=== PATIENT | female | born 1965 | race African-American/Black ===

== ENCOUNTER 2023-08-21 17:02 | Inpatient (IN) | payer OTHER, SELFPAY ==
[2023-08-21 14:33] VITALS: BP 156/94
[2023-08-21 15:24] VITALS: BMI 41.5
--- NOTE | 2023-08-21 15:26 | ED.GENMED ---
History of Present Illness
General
Chief Complaint: Skin Problem
Source: patient and physician
Time Seen by Provider: 08/21/23 15:06
Travel History
Have you had any contact with someone who has COVID-19?: No
Do you have any symptoms of coronavirus? Fever > 100 degrees, chills, cough, shortness of breath, sore throat, loss of taste or smell, muscle aches, or headache?: No
History of Present Illness
History of Present Illness:
57 year old female with PMH of breast cancer s/p double mastectomy presenting to the ED at the request of her oncology team for evaluation and ultimately admission of a suspected left breast cellulitis/abscess that began approximately 1.5 weeks ago
with worsening pain, erythema and what patient believes to be 'fluid underneath the skin' but without any purulent drainage. Patient dennies any fevers, chills, rigors. She has been on chronic PO amoxicillin and has needed IV abx in the past for
which she has been treated at [facility]. Patient has no other concerns at this time including nausea/vomiting, abdominal pain, chest pain, SOB.
Past History
Past History
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
ED Past Surgical History: Gynecological and Other (Bilateral mastectomy with tissue line up worker placement)
Patient has exhibited threatening behavior?: No
Social History
Tobacco: Former smoker
Alcohol: None
Drug: None
Personal:
Living: with family
Review of Systems
Review of Systems
All Other Systems: ROS reviewed and negative except as documented in HPI and ROS
Phy Exam
Physical Exam
Physical Exam:
GENERAL: Alert , in no apparent distress
HEAD: NCAT
EYE: clear conjunctiva
NECK: Supple
ENT: o/p clr, mmm.
CARDIAC: Regular rate and rhythm .
LUNGS: Clear breath sounds bilaterally, no acute respiratory distress, no wheezes/rales/rhonchi
NEUROLOGICAL: Alert and oriented
SKIN: Warm and dry, skin intact. Right breast: Well healed incision without dehiscense. There is surrounding erythema/edema/warmth and pain with palpation to the entire right chest wall extending in towards the axillary region. ? fluctuance at the
medial most aspect of the right chest wall.
MUSCULOSKELETAL: No edema, well perfused.
PSYCH: Normal and appropriate interaction.
Scores
Heart Failure Risk
Heart Failure Risk Score: Not Applicable
Heart Score for Chest Pain Patients
STEMI patient?: Not applicable
Withdrawal Assessment of Alcohol
Withdrawal Assessment Completed?: Not applicable
Course
Orders/Labs/Results
Orders:
Orders
08/21/23 Breakfast
Regular
At Your Request: Full Participation
08/21/23 15:24
Piperacillin/Tazo 3.375 Gram [Zosyn] 3.375 gram in 50 ml IV NOW
08/21/23 15:32
Alteplase [Cathflo/Activase] 2 mg IV NOW STA
08/21/23 16:02
Admit/Transfer Patient As Directed
Co-Sign Provider:
Level of Care: Inpatient admission
Assign to:: Medical/Surgical
Physician / Group: rafi coelho
Diagnosis: right breast infection
Reason for Hospitalization: right breast infection
Expected length of stay greater than two midnights?: Yes
ELOS- Estimated Length of Stay in days: 3
I certify the patient meets the requirements for IP care: Yes
08/21/23 16:03
Code Status As Directed
Resuscitation Status: Full Code
08/21/23 16:08
INFECTIOUS DISEASE CONSULT Routine
Consulting Provider: Sandra Sanchez
Was physician already notified: Yes
PLASTIC SURGERY CONSULT Routine
Consulting Provider: Emanuel Whiting
Was physician already notified: Yes
08/21/23 16:16
Lactic Acid Q4H
Comment: CANCEL 2nd LACTIC ACID IF 1st LACTIC ACID IS LESS THAN 2
08/21/23 16:17
CRP [C-Reactive Protein] Urgent
Complete Blood Count/With Diff Urgent
Comprehensive Metabolic Panel Urgent
ESR [Erythrocyte Sed Rate] Urgent
Blood Culture Q30M
JOSE Source: Blood/Venous
Specimen Description:
Blood Culture Q30M
JOSE Source: Blood/Venous
Specimen Description:
08/21/23 16:55
Vancomycin [Vancocin] 2,000 mg 0.9% Sodium Chloride 500 ml [Nss] 500 ml IV NOW
08/21/23 18:23
0.9% Sodium Chloride 1000 ml [Nss] 1,000 ml IV 80 mls/hr
Acetaminophen [Tylenol] 1,000 mg PO Q6HPRN PRN
HYDROmorphone [Dilaudid] 0.5 mg IV Q4HPRN PRN
Loperamide [Imodium] 2 mg PO Q4HPRN PRN
Ondansetron HCl [Zofran] 4 mg PO TIDPRN PRN
Oxycodone/Acetaminophen [Percocet 5/325] 1 tablet PO Q6HPRN PRN
08/21/23 18:23
Activity As Directed
Activity Level: As Tolerated
Intake/ Output As Directed
Frequency: Per unit guidelines
Pneumatic Compression Sleeves As Directed
Type: Knee high
Vital Signs As Directed
Frequency: Per unit guidelines
Weight As Directed
Frequency: Daily
Pulse Ox/spot Check [RESP] Routine
Quantity: 1
DX Deep Vein Thrombosis Video Routine
08/21/23 20:00
abemaciclib [Verzenio] 150 mg PO BID
08/21/23 22:00
Piperacillin/Tazo 3.375 Gram [Zosyn] 3.375 gram in 50 ml IV Q6H
08/22/23 Breakfast
NPO
Allow oral meds: Yes
Allow clear liquids: No
Complete Blood Count/With Diff IN AM
Comprehensive Metabolic Panel IN AM
PTT IN AM
Prothrombin Time IN AM
08/22/23 08:00
Cyanocobalamin [Vitamin B-12] 1,000 mcg PO DAILY
Abnormal Lab Results
08/21/23
16:17
RBC 3.33 L 10^6/uL
(4.20-5.40)
Hgb 10.4 L g/dL
(12.0-16.0)
Hct 30.5 L %
(37.0-47.0)
MCH 31.2 H pg
(27.0-31.0)
Abs Immat Gran (auto) 0.1 H 10^3/uL
(0-0.05)
Absolute Neuts (auto) 7.1 H 10^3/uL
(1.4-6.5)
Absolute Lymphs (auto) 0.9 L 10^3/uL
(1.2-3.4)
Immature Gran % 1.4 H %
(0-0.5)
Neutrophils % 81.1 H %
(42.2-75.2)
Lymphocytes % 9.8 L %
(20.5-51.1)
ESR > 145 H mm/hour
(0-20)
Potassium 3.2 L mmol/L
(3.5-5.1)
Chloride 95 L mmol/L
(98-107)
Glucose 116 H mg/dl
(70-99)
Alkaline Phosphatase 143 H U/L
(38-126)
C-Reactive Protein 232.90 H mg/L
(0.0-10.00)
Albumin 3.3 L g/dl
(3.5-5.0)
08/21/23 16:17
08/21/23 16:17
Vital Signs
Initial and Last Documented VS:
Initial Vital Signs
Temp Pulse Resp BP Pulse Ox
98.1 F 92 19 156/94 98
08/21/23 14:33 08/21/23 14:33 08/21/23 14:33 08/21/23 14:33 08/21/23 14:33
Last Documented Vital Signs
Temp Pulse Resp BP Pulse Ox
98.9 F 99 17 133/90 100
08/21/23 18:30 08/21/23 18:30 08/21/23 18:30 08/21/23 18:30 08/21/23 18:30
MDM/Problems Addressed
Differential Diagnosis Includes:
right breast cellulitis, abscess, necrotizing fasciitis, hardware infection
MDM/Problems Addressed:
57 y/o female sent to ED by oncology team with concern for right breast cellulitis, failed outpatient abx, scheduled for surgery tomorrow but oncology team would like patient to be started on IV abx with ID consult. Will notify patients surgical
team, on-call oncology team, on-call ID team and hospitalist. Patient declining anything for pain at this time. IV abx ordered. Cultures to be obtained.
Chronic conditions affecting care: Cancer
Acute Exacerbation and/or Progression of Chronic Illness: Cancer
*Pulse Oximetry
Patient hypoxic: no
*Critical Care Note
Total Time (30-74mins, 75-104mins- exclusive of procedures): Not Applicable
Data Reviewed
Review of Other/Old Records Reveals: Records and Discharge Summary
Source: patient, records and physician
Patient Management
Discussion with other providers: Hospitalist and Safety Fire Boss
Escalation/DeEscalation of care consider admission/obs:
I informed hospitalist, surgery team, infectious disease and oncology about patient's admission. Hospitalist is aware and accepts for continued evaluation and treatment.
ED Attending Note
-
Portions of this chart may have been created with voice recognition software.� Occasional wrong word or��sound alike� substitutions may have occurred due to the inherent limitations of voice recognition software.
Discharge Plan
Departure
Patient Disposition: Admit
Date of Disposition: 08/21/23
Time of Disposition: 15:26
Presentation/result/management discussed w/ accepting MD/DO: Hospitalist
Discharge Problem:
Cellulitis of right breast, Breast cancer
Interventions
Interventions:
*Risk Screen - Suicide Last Done: 08/21/23 15:32
*General Assessment Last Done: 08/21/23 14:33
*Neglect/Abuse Screening Last Done: 08/21/23 15:32
ED- Fall Risk Assessment Last Done: 08/21/23 15:30
*ED COVID-19 Vaccine History Last Done: 08/21/23 15:08
*Nursing Disposition Last Done: 08/21/23 18:10
ED-Skin Assessment Last Done: 08/21/23 15:30
Discharge Date and Time
Discharge Date/Time: 08/21/23 18:11
--- NOTE | 2023-08-21 15:33 | VATNOTE ---
pt arrived to room 16 in ER from [facility]; informed that one dose of cathflo had previously been administered in [facility]; still no blood return currently. PA in to see pt.; he will order 2nd dose of cathflo. Awaiting med arrival.
[2023-08-21] MEDS: ZOSYN 50 IV ×2 (15:43→22:08)
[2023-08-21 15:54] VITALS: BP 93/65
[2023-08-21] MEDS: CATHFLO/ACTIVASE 2 MG IV (15:55)
[2023-08-21 16:00] VITALS: BP 113/96
--- NOTE | 2023-08-21 16:03 | VATNOTE ---
cath linda given now; 2nd dose; informed 1st dose given in [facility] with no blood return. Checked prior to administration of cathflo and still no blood return. Cathflo to dwell now beginning @ 1600. Will recheck in approx. 1 hr.
--- NOTE | 2023-08-21 16:09 | HPS.HSE ---
Family Physician
-
Family Physician: NOT KNOW UNKNOWN - PT DOES
Chief Complaint
-
Right breast pain
History of Present Illness
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 Patient
has developed this for about 2 weeks and been having worsening pain along with erythema. Today patient went to her oncologist office who sent her to the ED. She has scheduled surgery with plastics tomorrow. Currently she denies any fever/chills.
Denies any nausea, vomiting, diarrhea, constipation. Denies any abdominal pain. Denies any chest pain, shortness of breath.
Medical History
Past Medical History
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
Past Surgical History: Reports Other (Bilateral mastectomy with tissue community worker placement)
Social History
Tobacco: Former Smoker
Alcohol: None
Drug: None
Family History
Family History: Not pertinent
Allergies / Home Medications
Allergies reflects when Allergies were last updated in [employer].
Home Medications with original date entered in [employer]
Allergy/Medication List:
Allergies
Allergy/AdvReac Type Severity Reaction Status Date / Time
codeine AdvReac Nausea / Verified 08/21/23 12:29
Vomiting
Home Medications
abemaciclib 150 mg tablet (Verzenio) 150 mg PO BID 08/29/19
ondansetron HCl 4 mg tablet 4 mg PO TIDPRN PRN nausea 08/29/19
loperamide 2 mg capsule 2 mg PO Q4HPRN PRN diarrhea 09/12/19
cyanocobalamin (vitamin B-12) 100 mcg tablet 1,000 mcg PO DAILY 12/17/20
amoxicillin 875 mg-potassium clavulanate 125 mg tablet 1 tab PO BID 03/09/23
acetaminophen 500 mg tablet 1,000 mg PO Q6H PRN mild pain 08/21/23
oxycodone-acetaminophen 5 mg-325 mg tablet 1 tab PO Q6HPRN PRN moderate pain 08/21/23
Review of Systems
-
History Source: Patient
A 12 point ROS was completed and negative except as noted: Yes
Physical Exam
Vital Signs
Vital Signs
Temp Pulse Resp BP Pulse Ox
98.1 F 92 19 113/96 99
08/21/23 14:33 08/21/23 14:33 08/21/23 14:33 08/21/23 16:00 08/21/23 16:00
Physical Exam
General: Well Nourished and No Apparent Distress
HEENT: Anicteric and Moist mucous membranes
Respiratory: Clear and Non Labored Respirations; No Wheezes
Cardiac: S1/S2 and Regular Rhythm
Breast: Deferred by me
GI: Soft, Non Tender, Non Distended and Normal Bowel Sounds
Rectal: Deferred by Provider
Genito-urinary: No Honeycutt
Musculoskeletal: No Edema
Skin: Other (Right breast tenderness, mild discharge from left)
Neuro: Awake, Alert, Oriented and AO x 3
Psych: Calm
Impression/Plan
-
Suspect right breast community worker infection
has hx of left community worker infection in the past
ID to evaluate
Start empiric antibiotics; on chronic augmentin. Follows up with Dr. Sanchez outpatient
N.p.o. past midnight for or tomorrow by plastic surgery
Pain control
No leukocytosis per morning labs, repeat labs pending
Lactate pending
History of breast cancer status post double mastectomy, left sided radiation and chemo
Continue with Verzenio
Follows up with Dr. Potter outpatient
pain control
Left arm lymphedema
Monitor
Morbid obesity secondary to excess calories
Monitor
DVTppx
SCD's for now; post OP can start pharm ppx if ok with surgeon
Full code
[2023-08-21 16:27] LABS: % Basophils 0.3 % (0-2); % Eosinophils 1.2 % (0-6); % Immature Granulocytes 1.4 % (0-0.5); % Lymphocytes 9.8 % (20.5-51.1); % Monocytes 6.2 % (1.7-9.3); % Neutrophils 81.1 % (42.2-75.2); Absolute Eosinophils 0.1 10^3/uL (0-0.7); Absolute Immature Granulocytes 0.1 10^3/uL (0-0.05); Absolute Lymphocytes 0.9 10^3/uL (1.2-3.4); Absolute Monocytes 0.5 10^3/uL (0.1-0.6); Absolute Neutrophils 7.1 10^3/uL (1.4-6.5); Hematocrit 30.5 % (37.0-47.0); Hemoglobin 10.4 g/dL (12.0-16.0); Mean Corp Hgb Conc. 34.1 g/dL (33.0-37.0); Mean Corpuscular Hgb 31.2 pg (27.0-31.0); Mean Corpuscular Volume 91.6 fL (81.0-99.0); Nucleated Red Blood Cells % 0 %; Platelet Count 273 10^3/uL (130-400); Red Blood Cell Count 3.33 10^6/uL (4.20-5.40); Red Cell Dist. Width 13.2 % (11.5-14.5); White Blood Cell Count 8.7 10^3/uL (4.8-10.8)
[2023-08-21 16:41] LABS: Lactic Acid 0.9 mmol/L (0.7-2.0)
[2023-08-21 16:51] LABS: Erythrocyte Sed Rate > 145 mm/hour (0-20)
[2023-08-21 16:52] LABS: ALT (SGPT) 21 U/L (0-35); AST (SGOT) 29 U/L (14-36); Albumin 3.3 g/dl (3.5-5.0); Alkaline Phosphatase 143 U/L (38-126); Blood Urea Nitrogen 9 mg/dl (7-17); Calcium 8.8 mg/dl (8.4-10.2); Carbon Dioxide 29 mmol/L (22-30); Chloride 95 mmol/L (98-107); Estimated Creatinine Clearance > 125 ml/min; Glucose 116 mg/dl (70-99); Potassium 3.2 mmol/L (3.5-5.1); Sodium 135 mmol/L (135-145); Total Bilirubin 0.9 mg/dl (0.2-1.3); Total Protein 6.4 g/dl (6.3-8.2); eGFR > 60.00
[2023-08-21] MEDS: VANCOCIN 540 MG IV (17:12)
--- NOTE | 2023-08-21 17:24 | VATNOTE ---
checked port @ 1700 for blood return while cathflo dwelled; no blood return; will recheck approx. 1800
[2023-08-21 18:22] VITALS: BMI 41.2
--- NOTE | 2023-08-21 18:29 | VATNOTE ---
only able to retreive 1ml of blood from port after 2 hr dwell of cathflo. Recommended to pt. & PCN dye study and possible more cathflo ordered for tomorrow. will heparinize now overnight.
[2023-08-21 18:30] VITALS: BP 133/90
--- NOTE | 2023-08-21 19:14 | PTCARENOTE ---
Received patient from ER via stretcher around 1819 in stable condition. Patient oriented to unit. Call harley in reach.
--- NOTE | 2023-08-21 19:32 | PHA.VAN.IN ---
Assessment
- Assessment
Renal Function: Other (SCR = 0.7)
Concomitant Antimicrobials: ZOSYN, CHRONIC AUGMENTIN
- Previous Dosing Experience
Previous Regimen: 1500MG IV Q12H X 3 DOSES
Date of Regimen: 08/04/17
Provided Trough of: 11
Provided AUC of: UNKNOWN
Patient's SCR is: Decreased compared to previous dosing experience (08/04/17 SCR = 0.9)
Patient's weight is: Decreased compared to previous dosing experience (08/04/17 WT = 136.9 KG)
AUC Dosing Plan
- Dosing Variables
Dosing Weight (kg): 134
Dosing CrCl (ml/min): 100
Vd coefficient (L/kg): 0.5
- Empiric Dosing
Initial / Loading Dose: 2GM
Maintenance Regimen: 1500MG IV Q12H
Estimated AUC (mcg*h/mL): 546
Estimated Peak (mcg*h/mL): 34.5
Estimated Trough (mcg/ml): 13.8
Estimated Half Life (H): 7.9
Pharmacokinetics Vancomycin I
- -
Patient Age: 57
Patient Sex: Female
Vancomycin Day #: 1
Indication: Skin And Soft Tissue ([L] BREAST INFECTION)
Requesting Provider: STEPH
Height / Weight:
Height 5 ft 11 in
Actual Weight 134.037 kg
Pertinent Past Medical History: BREAST CA, DOUBLE MASTECTOMY, [L] BREAST RECONSTRUCTION FAILURE,
- Vital Signs / Lab Results
Temp Pulse Resp BP Pulse Ox
98.9 F 99 17 133/90 100
08/21/23 18:30 08/21/23 18:30 08/21/23 18:30 08/21/23 18:30 08/21/23 18:30
Lab Results - Hematology
08/21/23
16:17
WBC 8.7
Lab Results - Chemistry
08/21/23
16:17
BUN 9
Creatinine 0.7
Estimated Creat Clear > 125
Albumin 3.3 L
08/21/23 08/21/23
16:16 19:15
Lactic Acid 0.9 Cancelled
[2023-08-21] MEDS: PERCOCET 5/325 1 TABLET PO (20:07)
[2023-08-21] MEDS: NSS 1000 IV (20:07)
[2023-08-21] MEDS: KCL 40 MEQ PO (23:01)
[2023-08-22] VITALS (13 sets, daily range): BP systolic 50–131; BP diastolic 58–86; BMI 40.9
[2023-08-22] MEDS: PERCOCET 5/325 1 TABLET PO ×2 (03:24→17:54)
[2023-08-22] MEDS: ZOSYN 50 IV ×4 (03:24→23:28)
[2023-08-22] MEDS: VANCOCIN 300 ML IV ×2 (05:07→17:49)
[2023-08-22] MEDS: VANCOCIN 300 MG IV ×2 (05:07→17:49)
[2023-08-22 06:33] LABS: % Basophils 0.2 % (0-2); % Immature Granulocytes 1.2 % (0-0.5); % Monocytes 6.9 % (1.7-9.3); % Neutrophils 79.7 % (42.2-75.2); Absolute Eosinophils 0.2 10^3/uL (0-0.7); Absolute Immature Granulocytes 0.1 10^3/uL (0-0.05); Absolute Lymphocytes 0.8 10^3/uL (1.2-3.4); Absolute Monocytes 0.6 10^3/uL (0.1-0.6); Absolute Neutrophils 6.4 10^3/uL (1.4-6.5); Hematocrit 26.9 % (37.0-47.0); Hemoglobin 9.1 g/dL (12.0-16.0); Mean Corp Hgb Conc. 33.8 g/dL (33.0-37.0); Mean Corpuscular Volume 91.5 fL (81.0-99.0); Mean Platelet Volume 9.2 fL (7.4-10.4); Nucleated Red Blood Cells % 0 %; Platelet Count 245 10^3/uL (130-400); Red Blood Cell Count 2.94 10^6/uL (4.20-5.40); Red Cell Dist. Width 13.3 % (11.5-14.5); White Blood Cell Count 8.1 10^3/uL (4.8-10.8)
[2023-08-22 06:41] LABS: INR 1.28; PT 15.8 Sec (11.4-14.6)
[2023-08-22 06:42] LABS: APTT 39.6 Sec (23.4-35.0)
[2023-08-22 06:54] LABS: ALT (SGPT) 18 U/L (0-35); AST (SGOT) 26 U/L (14-36); Albumin 2.8 g/dl (3.5-5.0); Alkaline Phosphatase 124 U/L (38-126); Blood Urea Nitrogen 14 mg/dl (7-17); Calcium 8.3 mg/dl (8.4-10.2); Carbon Dioxide 26 mmol/L (22-30); Chloride 101 mmol/L (98-107); Estimated Creatinine Clearance 104 ml/min; Glucose 126 mg/dl (70-99); Sodium 136 mmol/L (135-145); Total Bilirubin 0.7 mg/dl (0.2-1.3); Total Protein 5.6 g/dl (6.3-8.2); eGFR > 60.00
[2023-08-22 07:01] LABS: Potassium 3.5 mmol/L (3.5-5.1)
--- NOTE | 2023-08-22 07:30 | PTCARENOTE ---
Pt transferred to preop area via bed. Pt instructed on what to expect pre and post operatively. Pt verbalized understanding of instructions.
--- NOTE | 2023-08-22 08:12 | PHA.VAN.FU ---
Vancomycin Assessment / Plan
- Assessment
Renal Function: Stable
WBC's are: WNL
In the past 24 hrs, patient has been: Afebrile
Concomitant Antimicrobials: piperacillin/tazobactam
- Dosing Plan
Continue: Vanc 1500mg Q12H
- Monitoring Plan
No level(s) ordered at this time: consider levels in next few days
- Follow Up
Pharmacy will continue to follow.
Vancomycin Follow UP
- -
Patient Age: 57
Patient Sex: Female
Vancomycin Day #: 2
Indication: Skin And Soft Tissue
Requesting Provider: Dr. Berry
Pertinent Antimicrobial Allergies:
no pertinent antibiotic allergies
Height / Weight:
Height 5 ft 11 in
Actual Weight 133.044 kg
Pertinent Past Medical History: BMI ~41, breast cancer s/p double mastectomy
- Vital Signs / Lab Results
Temp Pulse Resp BP Pulse Ox
98.4 F 76 20 105/60 100
08/22/23 04:08 08/22/23 04:08 08/22/23 04:08 08/22/23 04:08 08/22/23 04:08
Lab Results - Hematology
08/21/23 08/22/23
16:17 06:02
WBC 8.7 8.1
Lab Results - Chemistry
08/21/23 08/22/23
16:17 06:02
BUN 9 14
Creatinine 0.7 0.9
Estimated Creat Clear > 125 104
Albumin 3.3 L 2.8 L
08/21/23 08/21/23
16:16 19:15
Lactic Acid 0.9 Cancelled
[2023-08-22] MEDS: ZOFRAN 4 MG IV (09:12)
--- NOTE | 2023-08-22 09:19 | W.IMMPOSTOP ---
Surgical Immed Post Op Note
-
Primary Surgeon: BETHANIE Whiting
Assisting Surgeon:
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
Post-op Diagnosis: Same
Procedure Performed: Removal of right infected tissue timber spotter, right capsulectomy
Anesthesia Type: General
Specimen / Cultures: Aerobic and anaerobic cultures, capsule for permanent
Estimated Blood Loss: 50 cc
Complications: None
Operative Findings: Gross purulence, periprosthetic fluid
--- NOTE | 2023-08-22 09:20 | OR.RPT ---
Operative Report
Operative Report
Surgeon: BETHANIE Whiting MD
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
Postoperative diagnosis: Same
Procedure:
1. Removal of right breast infected tissue perfect bind machine operator
2. Capsulectomy right breast
Complications: None
Anesthesia: General
EBL: 50 cc
Specimens: Right periprosthetic fluid for aerobic and anaerobic culture, right breast capsule for permanent
Indications for procedure: Patient is a 57-year-old female with metastatic breast cancer currently undergoing chemotherapy. She had a bilateral mastectomy and immediate perfect bind machine operator reconstruction. She underwent adjuvant radiation therapy on the left
breast and suffered a implant extrusion. The tissue perfect bind machine operator was subsequently removed and she was left with no reconstruction on that side. She was seen by infectious disease for small draining sinus and was maintained on p.o. antibiotics. The
right tissue perfect bind machine operator was deflated but left intact. She presented in the last 2 weeks with increased pain swelling and redness at the right breast concerning for periprosthetic infection. A plan was made for removal of the tissue perfect bind machine operator with
possible reinsertion. It was discussed that reinsertion would only take place if there is no evidence of gross purulence in the periprosthetic fluid. She was admitted to the hospital prior to her procedure for IV antibiotics. This was due to
worsening cellulitis of the right breast. As such the likelihood of placing a tissue perfect bind machine operator is very low due to the risk of infectious recurrence. Plan was made for removal of right tissue perfect bind machine operator with capsulectomy. Consents were signed
accordingly. Risk included bleeding, seroma, recurrent infection, need for repeat procedure. She understood these risk desired to proceed
Procedure in detail: Patient was identified in the preoperative area and the surgical site was confirmed to be the right breast. The area of fluctuance was marked out along the prior surgical scar. All questions were answered and consents were
confirmed. Patient was taken back to the operating room placed supine on table. Anesthesia was induced and the patient was prepped and draped in usual sterile fashion using ChloraPrep solution. Timeout for patient safety was performed was
confirmed that preoperative antibiotics been administered and bilateral SCDs were in place. Procedure began by the injection of 0.5% Marcaine into the right breast 10 cc in total. A 10 blade was then used to incise the prior scar Bovie
electrocautery was then used to dissect down into the breast capsule. A capsulotomy was performed and gross purulence was encountered. Aerobic anaerobic cultures were taken and the tissue perfect bind machine operator was removed. Tissue perfect bind machine operator was noted to be an
Allergan textured tissue perfect bind machine operator. The pocket was thoroughly irrigated and a capsulectomy was performed. The capsule was sent for permanent path. Meticulous hemostasis was ensured and the pocket was irrigated with double antibiotic solution
followed by dilute Betadine solution. A large bore Josse drain was placed in the pocket and tunneled through the skin. Wound was closed with a series of 2-0 Vicryl's followed by 2-0 nylon's. Patient tolerated procedure well and was performed
without complication. Counts were correct at the end of the case. She was extubated taken the PACU for further care
--- NOTE | 2023-08-22 10:20 | PTCARENOTE ---
Pt received from the PACU via bed. Transport was w/o incident. Pt is Awake, alert, oriented X3, HRR, lungs are clear, resp. easy. Pt's right breast area with a dry surgical dressing along with REINALDO tube. Reinaldo draining serosanquinous fluid. Pt denies
pain and denies nausea at present. Pt had recently been medicated in the PACU for nausea and pain. Pt instructed on plan of care. Pt verbalizes understanding of instrucions. Call harley is within reach.
[2023-08-22] MEDS: NSS 1000 IV (11:09)
[2023-08-22] MEDS: VITAMIN B-12 1000 MCG PO (12:31)
--- NOTE | 2023-08-22 13:45 | CM ---
Chart reviewed. Spoke with pt at bedside
h/o of breast cancer. Had infected tissue ip paralegal removed today
Pt lives in a ranch style home with her
Independent prior to hospitalization
No DME
Has had home care in past and home infusion but unable to recall agency
Denies past SNF
Will have ride at d/c
Primarily sees oncologist for ongoing care
Pharm - [facility]
CM will cont to follow for d/c needs
Plan - anticipate home no needs
--- NOTE | 2023-08-22 13:56 | W.PN.ID1 ---
Date of Service
Date of Service: August 22, 2023
Today's Communication
follow port
follow OR cultures
vanc/zosyn
Assessment / Plan
R Breast/Surgical Site Cellulitis
Possible Tissue Sample Mounter Infection
L Breast (CL side) was on presumptive rx for actinomyces
Port
- blood cultures x2 no growth to date
- OR findings c/w R sided infection
- CT chest appears to have been cancelled, not needed as patient now postoperative
- follow port - will review potential for dye study with IR
- agree with vancomycin/zosyn
- follow clinically
Chief Complaint
-: Cellulitis
Subjective / Review of Systems
afebrile
bp stable
without leukocytosis
esr/crp quite elevated
cr normal
OR findings with puss - tissue culture moderate wbc no organisms
blood cultures no growth
Vital Signs / Physical Exam
Vital Signs
Vital Signs
Temp Pulse Resp BP Pulse Ox
97.6 F 83 14 107/73 97
08/22/23 12:26 08/22/23 12:26 08/22/23 12:26 08/22/23 12:26 08/22/23 12:26
Physical Exam
Constitutional: No Acute Distress
Cardiovascular: Regular Rate and S1/S2; Negative Murmur or Rub
Pulmonary: Clear and Symmetric; Negative Wheezes or Rales
Gastrointestinal: Soft, Non Tender, Non Distended and Normal Bowel Sounds
Skin: Warm and Dry; Negative Rash or Jaundice
Objective Data
Lab Data
Lab Results
08/22/23 06:02
08/22/23 06:02
ESR > 145 mm/hour (0-20) H 08/21/23 16:17
PT 15.8 Sec (11.4-14.6) H 08/22/23 06:02
INR 1.28 08/22/23 06:02
APTT 39.6 Sec (23.4-35.0) H 08/22/23 06:02
Estimated Creat Clear 104 ml/min 08/22/23 06:02
Lactic Acid Cancelled 08/21/23 19:15
Total Bilirubin 0.7 mg/dl (0.2-1.3) 08/22/23 06:02
AST 26 U/L (14-36) 08/22/23 06:02
ALT 18 U/L (0-35) 08/22/23 06:02
Alkaline Phosphatase 124 U/L (38-126) 08/22/23 06:02
C-Reactive Protein 232.90 mg/L (0.0-10.00) H 08/21/23 16:17
Most recent labs reviewed.
Micro Results:
08/22/23 08:25 Wound Culture - Pending
Breast - Right Gram Stain - Preliminary
08/22/23 08:25 Anaerobic Culture - Pending
Breast - Right
08/21/23 16:17 Blood Culture - Pending
Blood/Venous
08/21/23 16:17 Blood Culture - Pending
Blood/Venous
Care Review
Plan reviewed with: Physician (Dr Whiting - left breast workup)
--- NOTE | 2023-08-22 14:02 | W.PN.HOSP.TC ---
Today's Communication/Plan
-
imaging will d/w with ID
IV ABX
Await OR culture
restart diet
Assessment / Plan
Assessment / Plan
#Right breast prior surgical site cellulitis with suspected hand wood sander infection
has hx of left hand wood sander infection in the past
Start empiric antibiotics; on chronic augmentin.� Follows up with Dr. Sanchez outpatient
s/p OR Removal of right infected tissue hand wood sander, right capsulectomy Gross purulence noted by Dr. Whiting
Pain control
No leukocytosis
IV abx per ID- IV vancomycin and IV zosyn
Pain control
f/u on OR aerobic and anaerobic cultures
will d/w with ID if further imaging required
History of breast cancer status post double mastectomy, left sided radiation and chemo
Continue with Verzenio
Follows up with Dr. Potter outpatient
pain control
Left arm lymphedema
Monitor
Morbid obesity secondary to excess calories
Monitor
DVTppx
SCD's for now; post OP can start pharm ppx if ok with surgeon
Full code
Anticipated Discharge: > 48 hours
Subjective/Interval History
-
Date of Service: August 22, 2023
seen post op
denies pain at surgical site
Objective Data
-
Labs:
Laboratory Results
08/22/23
06:02
WBC 8.1
Hgb 9.1 L
Hct 26.9 L
Plt Count 245
PT 15.8 H
INR 1.28
APTT 39.6 H
Sodium 136
Potassium 3.5
Chloride 101
Carbon Dioxide 26
BUN 14
Creatinine 0.9
Glucose 126 H
Calcium 8.3 L
Total Bilirubin 0.7
AST 26
ALT 18
Alkaline Phosphatase 124
Vital Signs:
Vital Signs
Temp Pulse Resp BP Pulse Ox
97.6 F 83 14 107/73 97
08/22/23 12:26 08/22/23 12:26 08/22/23 12:26 08/22/23 12:26 08/22/23 12:26
I&O
08/21/23 08/22/23 08/23/23
06:59 06:59 06:59
Intake Total 1660 / 1660 120 / 120
Output Total 400 / 400 50 / 50
Balance 1260 / 1260 70 / 70
Physical Exam
-
General: Well Developed, No Apparent Distress, Appears Chronically Ill and Morbidly Obese
HEENT: Normocephalic, Atraumatic, Moist Mucous Membranes and Other (R breast wall covered in dressing/REINALDO drain noted. R chest wall port noted )
Respiratory: Clear to Auscultation
Cardiac: Regular Rhythm and S1/S2; Negative Murmur, Rub or Gallop
GI: Soft, Nontender, Nondistended and Normal Bowel Sounds; Negative Organomegaly
Rectal: Deferred by Provider
Musculoskeletal: No Clubbing, No Cyanosis and No Edema
Skin: Negative Rash
Neuro: Awake, Oriented, AO x 3, No Motor Deficits and Nonfocal/Grossly Intact
Psych: Calm
[2023-08-22 15:05] LABS: Iron 40 ug/dl (37-170)
[2023-08-22 15:14] LABS: Percent Saturation 21 % (20-50); Total Iron Binding Capacity 186 ug/dl (265-497)
[2023-08-22 18:15] LABS: Folate 9.2 ng/ml (2.76-20); Vitamin B12 282 pg/ml (239-931)
--- NOTE | 2023-08-22 20:25 | PTCARENOTE ---
Around 2200 pt. states feeling itchy, namely citing her arms. Pt. states she occasionally gets itchy at home and thinks its a side effect from her Verzenio. Pt. denies any other concerns, VSS, no rash, no erythema, no SOB. Vancomycin IV running at
the time, late d/t problems with IV earlier. Pt. states no problems with AM infusion. House PIN MACHINE TENDER contacted, IV diphenhydramine given, and Vanco rate slowed down. Will continue to monitor.
[2023-08-22] MEDS: TYLENOL 1000 MG PO (22:16)
[2023-08-22] MEDS: BENADRYL 12.5 MG IV (22:17)
[2023-08-23 03:15] VITALS: BP 120/71
[2023-08-23] MEDS: ZOSYN 50 IV ×4 (04:07→21:43)
[2023-08-23] MEDS: NSS 1000 IV (04:07)
[2023-08-23] MEDS: NSS IV (04:07)
[2023-08-23 05:31] LABS: % Basophils 0.1 % (0-2); % Eosinophils 0.2 % (0-6); % Lymphocytes 7.2 % (20.5-51.1); % Monocytes 5.4 % (1.7-9.3); % Neutrophils 86.1 % (42.2-75.2); Absolute Immature Granulocytes 0.1 10^3/uL (0-0.05); Absolute Lymphocytes 0.7 10^3/uL (1.2-3.4); Absolute Monocytes 0.5 10^3/uL (0.1-0.6); Absolute Neutrophils 8.4 10^3/uL (1.4-6.5); Hemoglobin 8.5 g/dL (12.0-16.0); Mean Corpuscular Hgb 31.4 pg (27.0-31.0); Mean Corpuscular Volume 92.3 fL (81.0-99.0); Mean Platelet Volume 9.3 fL (7.4-10.4); Nucleated Red Blood Cells % 0 %; Platelet Count 264 10^3/uL (130-400); Red Blood Cell Count 2.71 10^6/uL (4.20-5.40); Red Cell Dist. Width 13.3 % (11.5-14.5); White Blood Cell Count 9.7 10^3/uL (4.8-10.8)
[2023-08-23 05:52] LABS: Blood Urea Nitrogen 14 mg/dl (7-17); Calcium 8.2 mg/dl (8.4-10.2); Carbon Dioxide 26 mmol/L (22-30); Chloride 106 mmol/L (98-107); Estimated Creatinine Clearance > 125 ml/min; Glucose 132 mg/dl (70-99); Sodium 135 mmol/L (135-145); eGFR > 60.00
[2023-08-23 06:00] VITALS: BMI 42.0
[2023-08-23] MEDS: VANCOCIN 300 ML IV (06:05)
[2023-08-23] MEDS: VANCOCIN 300 MG IV (06:05)
[2023-08-23 07:03] VITALS: BP 116/79
[2023-08-23] MEDS: VITAMIN B-12 1000 MCG PO (08:18)
--- NOTE | 2023-08-23 09:35 | W.PN.PLAS ---
Today's Communication
-
Drain working - appropriate for discharge when hospitalist and ID deem appropriate.
Recommend visiting nurse
Drain will stay for 1 to 2 weeks
Progress Note
Subjective Data
Doing well, pain is improved, tolerating drain
Objective Data
Vital Signs
Temp Pulse Resp BP Pulse Ox
98 F 71 20 116/79 100
08/23/23 07:03 08/23/23 07:03 08/23/23 07:03 08/23/23 07:03 08/23/23 07:03
Intake and Output
08/22/23 08/23/23 08/24/23
06:59 06:59 06:59
Intake Total 1660 / 1660 1740 / 1740
Output Total 400 / 400 875 / 875
Balance 1260 / 1260 865 / 865
Intake:
Oral fluids 480 / 480 1640 / 1640
IV fluids (Total) 880 / 880 100 / 100
normosol 100 / 100
IV piggybacks 300 / 300
Output:
Drain Output (Total) 120 / 120
Right Breast 120 / 120
Urine, Voided 400 / 400 755 / 755
Physical exam:
No acute distress
No increased work of breathing
Right breast with incision intact dressings in place
REINALDO drain serosanguineous
No recurrent fluid collections
Lab Results
08/23/23 05:10
08/23/23 05:10
Microbiology Results
08/21/23 16:17 Blood/Venous Blood Culture - Preliminary
No Growth in 24 hours- Final report to follow
08/21/23 16:17 Blood/Venous Blood Culture - Preliminary
No Growth in 24 hours- Final report to follow
08/22/23 08:25 Breast - Right Gram Stain - Preliminary
Assessment / Plan
Status post right tissue functional manager removal with positive periprosthetic fluid collection with purulence. Culture sent.
Drain for 1 to 2 weeks
Sutures for 1 to 2 weeks
Awaiting culture results
--- NOTE | 2023-08-23 10:20 | W.PN.HOSP.TC ---
Addendum entered and electronically signed by Jovany Henderson MD 08/28/23 13:08:
hypokalemia
Addendum entered and electronically signed by Jovany Henderson MD 08/23/23 12:25:
Normocytic anemia/anemia of chronic disease likely secondary to malignancy and mild hemodilutional noted due to IV fluids
Original Note:
Today's Communication/Plan
-
Await further culture data
Continue with IV antibiotic
Port removal
N.p.o. for procedure for now
ID recs
Assessment / Plan
Assessment / Plan
#Right breast prior surgical site cellulitis with suspected industrial ecologist infection
has hx of left industrial ecologist infection in the past
Start empiric antibiotics; on chronic augmentin.� Follows up with Dr. Sanchez outpatient
s/p OR Removal of right infected tissue industrial ecologist, right capsulectomy Gross purulence noted by Dr. Whiting
Pain control
No leukocytosis
IV abx per ID- IV vancomycin and IV zosyn
Pain control
f/u on OR aerobic and anaerobic cultures preliminary with few strep species
No need for further imaging
History of breast cancer status post double mastectomy, left sided radiation and chemo
Normocytic anemia
Continue with Verzenio
Follows up with Dr. Potter outpatient
pain control
Plan to remove port today
Appropriate iron stores. B12 low already on supplementation.
Left arm lymphedema
Monitor
Morbid obesity secondary to excess calories
Monitor
DVTppx
SCD's for now; start Lovenox
Full code
Anticipated Discharge: > 48 hours
Subjective/Interval History
-
Date of Service: August 23, 2023
States of mild right shoulder discomfort after adjustment of REINALDO drain by plastic surgery
Objective Data
-
Labs:
Laboratory Results
08/23/23
05:10
WBC 9.7
Hgb 8.5 L
Hct 25.0 L
Plt Count 264
Sodium 135
Potassium 4.0
Chloride 106
Carbon Dioxide 26
BUN 14
Creatinine 0.7
Glucose 132 H
Calcium 8.2 L
Vital Signs:
Vital Signs
Temp Pulse Resp BP Pulse Ox
98 F 71 20 116/79 100
08/23/23 07:03 08/23/23 07:03 08/23/23 07:03 08/23/23 07:03 08/23/23 07:03
I&O
08/22/23 08/23/23 08/24/23
06:59 06:59 06:59
Intake Total 1660 / 1660 1740 / 1740
Output Total 400 / 400 875 / 875
Balance 1260 / 1260 865 / 865
Physical Exam
-
General: Well Developed, No Apparent Distress, Appears Chronically Ill and Morbidly Obese
HEENT: Normocephalic, Atraumatic, Moist Mucous Membranes and Other (R breast wall covered in dressing/REINALDO drain noted. R chest wall port noted )
Respiratory: Clear to Auscultation
Cardiac: Regular Rhythm and S1/S2; Negative Murmur, Rub or Gallop
GI: Soft, Nontender, Nondistended and Normal Bowel Sounds; Negative Organomegaly
Rectal: Deferred by Provider
Musculoskeletal: No Clubbing, No Cyanosis and No Edema
Skin: Negative Rash
Neuro: Awake, Oriented, AO x 3, No Motor Deficits and Nonfocal/Grossly Intact
Psych: Calm
Data Reviewed
-
Total Time Spent with Patient (in minutes): 54
[2023-08-23 11:37] VITALS: BP 119/61
--- NOTE | 2023-08-23 12:06 | PN.CDI ---
CDI
- -
CDI:
Physician Documentation Request
Admit Date: 08/21/23 17:02
Dear Doctor Santiago,
Clinical Indicators:
Patient admitted with right breast cellulitis with tissue parking lot manager infection; s/p removal of right tissue parking lot manager and right capsulectomy 08/22.
08/22 Anesthesia report: IVF 500 ml EBL 50 ml
IVF NSS @ 80 ml /hr maintenance
08/23 PN, 'Normocytic anemia'
Hgb/Hct trend:
08/21/23 08/22/23 08/23/23
16:17 06:02 05:10
Hgb 10.4 L 9.1 L 8.5 L
Hct 30.5 L 26.9 L 25.0 L
Based on the above, could you clarify, in your progress note, which of the following is the most likely type of anemia you are evaluating, monitoring and/or treating?
Anemia, multifactorial due to acute blood loss, hemodilution and underlying malignancy/chemotherapy.
Normocytic Anemia only
Other, please specify
Use of terms such as suspected, likely, concern for, or probable (associated with a specific diagnosis that is being evaluated, monitored, or treated as if it exists) are acceptable and can be coded in the inpatient setting, when documented at the
time of discharge.
Thank you,
SUKH Kim RN
CDI Specialist
available via tiger text
Please use your independent medical judgment in providing your response.
--- NOTE | 2023-08-23 12:20 | PN.CDI ---
CDI
- -
CDI:
Physician Documentation Request
Admit Date: 08/21/23 17:02
Dear Doctor Santiago,
Clinical Indicators:
Patient admitted with right breast cellulitis with tissue valuer infection; s/p removal of right tissue valuer and right capsulectomy 08/22.
2 Potassium chloride 40 meq po x 1.
Potassium level:
08/21/23
16:17
Potassium 3.2 L
Based on the above, could you clarify in the progress notes, the appropriate diagnosis, if significant, that supports the above abnormalities and additional evaluation, monitoring and/or treatment rendered:
Hypokalemia
Abnormal lab value, clinically insignificant
Other
Use of terms such as suspected, likely, concern for, or probable (associated with a specific diagnosis that is being evaluated, monitored, or treated as if it exists) are acceptable and can be coded in the inpatient setting, when documented at the
time of discharge.
Thank you,
SUKH Kim RN
CDI Specialist
available via tiger text
Please use your independent medical judgment in providing your response.
--- NOTE | 2023-08-23 14:26 | W.PN.ID1 ---
Date of Service
Date of Service: August 23, 2023
Today's Communication
- recommend port removal - consulted IR and discussed with Dr Zuniga yesterday
- continue zosyn, stop vancomycin
Assessment / Plan
R Breast/Surgical Site Cellulitis
Possible Tissue Quarry Plant Crusher Operator Infection
Port
- OR cultures: few strep, mixed anaerobes
- blood cultures x2 no growth to date
- OR findings c/w R sided infection
- recommend port removal - consulted IR and discussed with Dr Zuniga yesterday
- continue zosyn, stop vancomycin
- follow clinically
Chief Complaint
-: Cellulitis
Subjective / Review of Systems
afebrile
bp stable
without leukocytosis
L shift is noted
cr 0.7
cultures reviewed - few strep seen in the wound culture, anaerobic culture - mixed anaerobes
Vital Signs / Physical Exam
Vital Signs
Vital Signs
Temp Pulse Resp BP Pulse Ox
98.1 F 63 19 119/61 98
08/23/23 11:37 08/23/23 11:37 08/23/23 11:37 08/23/23 11:37 08/23/23 11:37
Physical Exam
Constitutional: No Acute Distress
Cardiovascular: Regular Rate and S1/S2; Negative Murmur or Rub
Pulmonary: Clear and Symmetric; Negative Wheezes or Rales
Gastrointestinal: Soft, Non Tender, Non Distended and Normal Bowel Sounds
Musculoskeletal: Other (right breast no erythema, no warmth or swelling, REINALDO in place with serosanguinous fluid)
Skin: Warm and Dry; Negative Rash or Jaundice
Lines: PIV
Objective Data
Lab Data
Lab Results
08/23/23 05:10
08/23/23 05:10
ESR > 145 mm/hour (0-20) H 08/21/23 16:17
PT 15.8 Sec (11.4-14.6) H 08/22/23 06:02
INR 1.28 08/22/23 06:02
APTT 39.6 Sec (23.4-35.0) H 08/22/23 06:02
Estimated Creat Clear > 125 ml/min 08/23/23 05:10
Lactic Acid Cancelled 08/21/23 19:15
Total Bilirubin 0.7 mg/dl (0.2-1.3) 08/22/23 06:02
AST 26 U/L (14-36) 08/22/23 06:02
ALT 18 U/L (0-35) 08/22/23 06:02
Alkaline Phosphatase 124 U/L (38-126) 08/22/23 06:02
C-Reactive Protein 232.90 mg/L (0.0-10.00) H 08/21/23 16:17
Most recent labs reviewed.
Micro Results:
08/22/23 08:25 Anaerobic Culture - Preliminary
Breast - Right Culture pending. Anaerobic cultures are examined after 3
days incubation. Additional information to follow.
08/22/23 08:25 Wound Culture - Preliminary
Breast - Right Gram Stain - Preliminary
08/21/23 16:17 Blood Culture - Preliminary
Blood/Venous No Growth in 24 hours- Final report to follow
08/21/23 16:17 Blood Culture - Preliminary
Blood/Venous No Growth in 24 hours- Final report to follow
--- NOTE | 2023-08-23 15:33 | CM ---
Chart reviewed. Spoke with pt
For port removal today
CM will continue to follow for d/c needs
[2023-08-23 15:34] VITALS: BP 108/58
[2023-08-23 15:40] VITALS: BP 100/68; BP_SYST 70
[2023-08-23] MEDS: LOVENOX 40 MG SC (17:10)
--- NOTE | 2023-08-23 21:40 | PTCARENOTE ---
Pt's own Verzenio 150mg tabs x8 taken down to pharmacy and barcoded to be dosed out BID per orders. Pt. states she wants to keep the medication in her possession due to the high cost of the medicine. Instructed pt. to not take medication until
checking with nursing staff. Pt. verbalized her understanding.
[2023-08-23] MEDS: NON-FORMULARY ITEM PO ×4 (21:41→21:42)
[2023-08-23] MEDS: NON-FORMULARY ITEM 150 MG PO (21:42)
[2023-08-23 23:05] VITALS: BP 105/69
[2023-08-24] MEDS: ZOSYN 50 IV ×4 (04:01→22:36)
[2023-08-24] MEDS: FLUSH (NSS) 1 FLUSH IV (04:03)
[2023-08-24 05:58] VITALS: BMI 42.2
[2023-08-24 06:09] LABS: % Basophils 0.3 % (0-2); % Eosinophils 2.4 % (0-6); % Lymphocytes 20.2 % (20.5-51.1); % Monocytes 5.1 % (1.7-9.3); Absolute Eosinophils 0.2 10^3/uL (0-0.7); Absolute Immature Granulocytes 0.1 10^3/uL (0-0.05); Absolute Lymphocytes 1.4 10^3/uL (1.2-3.4); Absolute Monocytes 0.3 10^3/uL (0.1-0.6); Absolute Neutrophils 4.7 10^3/uL (1.4-6.5); Hematocrit 24.2 % (37.0-47.0); Hemoglobin 7.9 g/dL (12.0-16.0); Mean Corp Hgb Conc. 32.6 g/dL (33.0-37.0); Mean Corpuscular Volume 94.9 fL (81.0-99.0); Mean Platelet Volume 9.4 fL (7.4-10.4); Nucleated Red Blood Cells % 0 %; Platelet Count 278 10^3/uL (130-400); Red Blood Cell Count 2.55 10^6/uL (4.20-5.40); Red Cell Dist. Width 13.6 % (11.5-14.5); White Blood Cell Count 6.7 10^3/uL (4.8-10.8)
[2023-08-24 06:24] LABS: Blood Urea Nitrogen 14 mg/dl (7-17); Calcium 8.5 mg/dl (8.4-10.2); Carbon Dioxide 27 mmol/L (22-30); Chloride 108 mmol/L (98-107); Estimated Creatinine Clearance 106 ml/min; Glucose 85 mg/dl (70-99); Potassium 3.9 mmol/L (3.5-5.1); Sodium 138 mmol/L (135-145); eGFR > 60.00
[2023-08-24 08:11] VITALS: BP 105/57
[2023-08-24] MEDS: VITAMIN B-12 1000 MCG PO (08:25)
[2023-08-24] MEDS: NON-FORMULARY ITEM 150 MG PO ×2 (08:26→22:37)
--- NOTE | 2023-08-24 10:07 | W.PN.HOSP.TC ---
Today's Communication/Plan
-
IV Zosyn
F/U further ID recs
repeat Hg at noon
Assessment / Plan
Assessment / Plan
#Right breast prior surgical site cellulitis with suspected primary care nurse infection
has hx of left primary care nurse infection in the past, on chronic augmentin
s/p OR Removal of right infected tissue primary care nurse, right capsulectomy Gross purulence noted by Dr. Whiting
Pain control
No leukocytosis
IV abx per ID - IV zosyn
f/u on OR aerobic and anaerobic cultures preliminary with few strep species
No need for further imaging
History of breast cancer status post double mastectomy, left sided radiation and chemo
Continue with Verzenio
Follows up with Dr. Potter outpatient
s/p port removal on 08/23
Anemia
-no e/o active bleeding
-likely some degree post-op anemia
-will repeat at noon today
-iron studies with anemia 2/2 inflammation
-low B12 - continue supplementation
Left arm lymphedema
Monitor
Morbid obesity secondary to excess calories
Monitor
DVTppx
SCD's for now; start Lovenox
Full code
Anticipated Discharge: 24 - 48 hours
Subjective/Interval History
-
Date of Service: August 24, 2023
feeling better; inflammation decreasing
no fevers
Objective Data
-
Labs:
Laboratory Results
08/24/23 08/24/23
05:32 12:00
WBC 6.7
Hgb 7.9 L Pending
Hct 24.2 L
Plt Count 278
Sodium 138
Potassium 3.9
Chloride 108 H
Carbon Dioxide 27
BUN 14
Creatinine 0.9
Glucose 85
Calcium 8.5
Vital Signs:
Vital Signs
Temp Pulse Resp BP Pulse Ox
98.3 F 65 16 105/57 95
08/24/23 08:11 08/24/23 08:11 08/24/23 08:11 08/24/23 08:11 08/24/23 08:11
I&O
08/23/23 08/24/23 08/25/23
06:59 06:59 06:59
Intake Total 1740 / 1740 3540 / 3540
Output Total 875 / 875 50 / 50
Balance 865 / 865 3490 / 3490
Review of Systems
-
History Source: Patient
All other systems: Reviewed and negative
Physical Exam
-
General: Well Developed, No Apparent Distress, Appears Chronically Ill and Morbidly Obese
HEENT: Normocephalic, Atraumatic, Moist Mucous Membranes and Other (R breast wall covered in dressing/REINALDO drain noted.)
Respiratory: Clear to Auscultation
Cardiac: Regular Rhythm and S1/S2; Negative Murmur, Rub or Gallop
GI: Soft, Nontender, Nondistended and Normal Bowel Sounds; Negative Organomegaly
Rectal: Deferred by Provider
Musculoskeletal: No Clubbing, No Cyanosis and No Edema
Skin: Negative Rash
Neuro: Awake, Oriented, AO x 3, No Motor Deficits and Nonfocal/Grossly Intact
Psych: Calm
Data Reviewed
-
Diagnostic Radiology: Report Reviewed by me
Labs: Labs Reviewed by me
[2023-08-24 12:35] LABS: Hemoglobin 8.9 g/dL (12.0-16.0)
--- NOTE | 2023-08-24 14:10 | CM ---
Chart reviewed
Cont on IV abx. Following Hgb
CM will follow for d/c needs
--- NOTE | 2023-08-24 16:02 | PTCARENOTE ---
Pt c/o feeling increasing swelling to chest, denies CP/pressure or SOB. Does not appear with worsening edema but states ' i just feel more jiggly/puffy'. Dr Jerry and Dr Whiting notified via [employer] text. Will continue to monitor.
--- NOTE | 2023-08-24 16:24 | W.PN.UPDATE ---
Update Note
Progress Note Update
called to patient bedside as she feels her chest is more swollen. she denies chest pain or shortness of breath. feels tissue is more swollen although on exam it is not obviously so. she is laying flat. I encouraged her to sit up to aid with
swelling. Keep an eye on it overnight and consider repeat imaging tomorrow if worsens.
[2023-08-24 17:03] VITALS: BP 117/61
--- NOTE | 2023-08-24 17:17 | W.PN.PLAS ---
Today's Communication
-
Removed dressing
Follow up on 09/03/23
Progress Note
Subjective Data
Doing much better. Denies fever. Tolerating drain.
Objective Data
Vital Signs
Temp Pulse Resp BP Pulse Ox
97.6 F 72 16 117/61 98
08/24/23 17:03 08/24/23 17:03 08/24/23 17:03 08/24/23 17:03 08/24/23 17:03
Physical exam:
No acute distress
No increased work of breathing
Right breast with suture line intact, dressing in place
REINALDO drain serosanguineous with appropriate output
No undrained fluid collections
Intake and Output
08/23/23 08/24/23 08/25/23
06:59 06:59 06:59
Intake Total 1740 / 1740 3540 / 3540 1250 / 1250
Output Total 875 / 875 50 / 50 20 / 20
Balance 865 / 865 3490 / 3490 1230 / 1230
Intake:
Oral fluids 1640 / 1640 1800 / 1800 1200 / 1200
IV fluids (Total) 100 / 100 1540 / 1540
normosol 100 / 100
IV piggybacks 200 / 200 50 / 50
Output:
Drain Output (Total) 120 / 120 50 / 50 20 / 20
Right Breast 120 / 120 50 / 50 20 / 20
Urine, Voided 755 / 755
Other:
Number of approximated MODERATE 3 4
amounts of urine
Lab Results
08/24/23 12:28
08/24/23 05:32
Microbiology Results
08/21/23 16:17 Blood/Venous Blood Culture - Preliminary
No Growth in 72 hours- Final report to follow
08/21/23 16:17 Blood/Venous Blood Culture - Preliminary
No Growth in 72 hours- Final report to follow
08/22/23 08:25 Breast - Right Wound Culture - Preliminary
08/22/23 08:25 Breast - Right Gram Stain - Preliminary
Assessment / Plan
Status post right infected tissue clubhouse manager explantation, capsulectomy.
Drain in place and tolerating it well
Cultures pending with ID following
Appropriate for discharge from surgical perspective. Will follow-up in 2 weeks for suture removal and drain removal.
[2023-08-24] MEDS: LOVENOX 40 MG SC (17:29)
[2023-08-24] MEDS: TYLENOL 1000 MG PO (22:40)
[2023-08-24 23:37] VITALS: BP 114/77
[2023-08-25] MEDS: ZOSYN 50 IV ×2 (03:56→09:46)
[2023-08-25] MEDS: FLUSH (NSS) 1 FLUSH IV (03:59)
[2023-08-25 06:00] VITALS: BMI 42.2
[2023-08-25 06:11] LABS: Hematocrit 24.3 % (37.0-47.0); Hemoglobin 8.1 g/dL (12.0-16.0); Mean Corp Hgb Conc. 33.3 g/dL (33.0-37.0); Mean Corpuscular Hgb 31.5 pg (27.0-31.0); Mean Corpuscular Volume 94.6 fL (81.0-99.0); Mean Platelet Volume 9.3 fL (7.4-10.4); Platelet Count 281 10^3/uL (130-400); Red Blood Cell Count 2.57 10^6/uL (4.20-5.40); Red Cell Dist. Width 13.5 % (11.5-14.5); White Blood Cell Count 6.2 10^3/uL (4.8-10.8)
[2023-08-25 06:48] LABS: Blood Urea Nitrogen 14 mg/dl (7-17); Calcium 8.4 mg/dl (8.4-10.2); Carbon Dioxide 28 mmol/L (22-30); Chloride 106 mmol/L (98-107); Estimated Creatinine Clearance 87 ml/min; Glucose 81 mg/dl (70-99); Potassium 3.8 mmol/L (3.5-5.1); Sodium 136 mmol/L (135-145); eGFR 58.61
[2023-08-25 07:19] VITALS: BP 130/83
--- NOTE | 2023-08-25 09:32 | W.PN.HOSP.TC ---
Today's Communication/Plan
-
Hematology oncology evaluation to address anticoagulation
She is a patient of Dr. Potter
Continue IV antibiotics and wait for final cultures
IV fluids and follow creatinine
Bowel regimen
Assessment / Plan
Assessment / Plan
On examination awake and alert not in any distress
Cardiovascular system S1-S2 appreciated
Bilateral mastectomy right breast with a drain in
Sutures noted, no discharge
Abdomen soft and nontender
No pedal edema or calf tenderness
Left upper extremity lymphedema
# Right breast prior surgical site cellulitis with suspected automated logistics specialist infection
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
s/p OR Removal of right infected tissue automated logistics specialist, right capsulectomy Gross purulence noted by Dr. Whiting 08/22/23
Pain control
No leukocytosis
IV abx per ID - IV Zosyn
f/u on OR aerobic and anaerobic cultures preliminary with few strep species
No need for further imaging
#History of stage 3A breast cancer ER/OK positive. HER2 negative PIK3 positive
Status post double mastectomy, left sided radiation and chemo
PET scan 08/16/2022-blastic osseous metastasis in the thoracic and lumbar spine
Continue with Verzenio
Monthly Faslodex
Follows up with Dr. Potter outpatient
s/p port removal on 08/23
# Elevated creatinine-patient did not receive IV contrast for the CT on 08/22/2023
IV fluids
#Constipation- pt admits when I asked
Loperamide discontinued
Bowel regimen
#Anemia
-no e/o active bleeding
-likely some degree post-op anemia
-iron studies with anemia 2/2 inflammation
-low normal B12 - continue supplementation
#Left arm lymphedema
sleeve
# Neuropathy
#Obesity with BMI 42
Weight loss advised
# History of pulmonary embolism 03/09/2023
Left upper and lower lobes
Patient was on Xarelto 20 mg which she stopped in July
Hematology oncology evaluation to see if this needs to be continued with her active malignancy
# History of pleural effusion with thoracentesis 08/15/2019
# Hypoalbuminemia
# Ex-smoker
#DVTppx- Lovenox
#Full code
Anticipated Discharge: 24 - 48 hours
Subjective/Interval History
-
Date of Service: August 25, 2023
Objective Data
-
Labs:
Laboratory Results
08/25/23
04:56
WBC 6.2
Hgb 8.1 L
Hct 24.3 L
Plt Count 281
Sodium 136
Potassium 3.8
Chloride 106
Carbon Dioxide 28
BUN 14
Creatinine 1.1 H
Glucose 81
Calcium 8.4
Vital Signs:
Vital Signs
Temp Pulse Resp BP Pulse Ox
98.1 F 84 16 130/83 100
08/25/23 07:19 08/25/23 07:19 08/25/23 07:19 08/25/23 07:19 08/25/23 07:19
I&O
08/24/23 08/25/23 08/26/23
06:59 06:59 06:59
Intake Total 3540 / 3540 1490 / 1490
Output Total 50 / 50
Balance 3490 / 3490 1470 / 1470
[2023-08-25] MEDS: VITAMIN B-12 1000 MCG PO (09:43)
[2023-08-25] MEDS: NON-FORMULARY ITEM 150 MG PO (09:44)
[2023-08-25] MEDS: NSS 1000 IV (10:47)
[2023-08-25] MEDS: SENOKOT 8.59999999999999964 MG PO ×2 (11:01→20:39)
[2023-08-25] MEDS: MIRALAX 17 GRAMS PO (11:01)
[2023-08-25] MEDS: COLACE 100 MG PO ×2 (11:01→20:40)
--- NOTE | 2023-08-25 12:28 | W.PN.UPDATE ---
Addendum entered and electronically signed by Lit Kohli MD 08/25/23 15:14:
okay with Xarelto being resumed.
Restart
Original Note:
Update Note
Progress Note Update
Pt needs to restart AC per [facility].
Reached out to with recent surgery
--- NOTE | 2023-08-25 12:50 | CON.ONC ---
Impression
Impression
right chest wall infection - s/p tissue curriculum consultant removal, s/p medi-port removal
metastatic breast cancer - verzenio/ faslodex - w/ Dr. Potter
PE
Plan
Plan
1. Right chest wall infection - s/p removal of tissue curriculum consultant as well as medi-port
-antibiotics as per ID
-plastic surgery management
2. PE
-resume anticoagulation if ok w/ surgery - was on xarelto 20mg daily
-in the setting of metastatic malignancy - long-term anticoagulation would be recommended for potential risk reduction of recurrence of VTE
3. Metastatic breast cancer
-will hold verzenio - w/ active infection - as can cause cytopenias
-follow CBC
-f/u w/ Dr. Potter as outpt
Patient History
History of Present Illness
57y/o female seen in consultation today regarding h/o metastatic breast cancer, as well as PE 03/07. Patient is followed by Dr. Ptoter and has been treated w/ verzenio and faslodex. She has had issues w/ chest wall infections of mastectomy sites/
tissue expanders. bilaterally. She is now admitted w/ infection of right chest wall tissue curriculum consultant, requiring removal and drainage. She has drain in place and is on antibiotics. W/ some concern as to infection involving medi-port, it has been
removed as well.
She also has a h/o PE in 03/07 for which she had been on xarelto - which she stopped several weeks ago. She has not resumed this therapy.
Clinically, she denies bleeding from recent surgical wound. No blood in her stool. No SOB, chest pain, palpitations, LE edema, fevers or chills.
Past-Medical/Surgical History
PMH:
breast cancer s/p bilateral mastectomy - reconstruction
infection mastectomy site/ chest wall/ tissue expanders - bilateral
PE
lymphedema
PSH:
bilateral mastectomy w/ reconstruction
SH: no tobacco use, former tobacco user, no ETOH
FH: non-contributory
Allergies: codeine
Patient Medication
Medication Instructions Recorded Confirmed Last Taken Type
abemaciclib 150 mg tablet 150 mg PO BID 08/29/19 08/21/23 08/21/23 History
(Verzenio)
ondansetron HCl 4 mg tablet 4 mg PO TIDPRN PRN nausea 08/29/19 08/21/23 05/21/23 History
loperamide 2 mg capsule 2 mg PO Q4HPRN PRN diarrhea 09/12/19 08/21/23 03/08/23 History
cyanocobalamin (vitamin B-12) 100 1,000 mcg PO DAILY 12/17/20 08/21/23 08/21/23 History
mcg tablet
amoxicillin 875 mg-potassium 1 tab PO BID 03/09/23 08/21/23 08/21/23 History
clavulanate 125 mg tablet
acetaminophen 500 mg tablet 1,000 mg PO Q6H PRN mild pain 08/21/23 08/21/23 Unknown History
oxycodone-acetaminophen 5 mg-325 1 tab PO Q6HPRN PRN moderate pain 08/21/23 08/21/23 3 Days Ago History
mg tablet ~08/18/23
Active Medications
Generic Name Dose Route Start Last Admin
Trade Name Freq PRN Reason Stop Dose Admin
Acetaminophen 1,000 mg 08/21/23 18:23 08/24/23 22:40
Acetaminophen 500 Mg Tablet PO 09/18/23 18:22 1,000 mg
Q6HPRN PRN Administration
mild pain
Cyanocobalamin 1,000 mcg 08/22/23 11:30 08/25/23 09:43
Cyanocobalamin 1,000 Mcg Tablet PO 09/19/23 11:29 1,000 mcg
DAILY ARCHIE Administration
Docusate Sodium 100 mg 08/25/23 20:00
Docusate Sodium 100 Mg Capsule PO 09/22/23 19:59
BID ARCHIE
Enoxaparin Sodium 40 mg 08/23/23 18:00 08/24/23 17:29
Enoxaparin Sodium 40 Mg/0.4 Ml Syringe SC 09/20/23 17:59 40 mg
QPM ARCHIE Administration
Heparin Sodium (Porcine) 500 unit 08/21/23 18:29 08/21/23 18:30
Heparin Flush Pf (100 Unit/Ml) 5 Ml Syringe IV 09/18/23 18:28 500 unit
PRN PRN Administration
SC PORT PATENCY
Hydromorphone HCl 0.5 mg 08/21/23 18:23
Hydromorphone 0.5 Mg/0.5 Ml Syringe IV 09/04/23 18:22
Q4HPRN PRN
severe pain
Piperacillin Sod/Tazobactam Sod 3.375 gram in 50 mls @ 100 mls/hr 08/21/23 22:00 08/25/23 09:46
Zosyn IV 50 mls
Q6H ARCHIE Administration
Sodium Chloride 1,000 mls @ 75 mls/hr 08/25/23 10:00 08/25/23 10:47
Nss IV 08/25/23 23:19 1,000 mls
.[id number] ARCHIE Administration
Pom Abemaciclib 0 mg 08/21/23 20:00 08/25/23 09:44
[Verzenio] 150 Mg PO 09/18/23 19:59 150 mg
Tablet Po Bid BID ARCHIE Administration
Ondansetron HCl 4 mg 08/21/23 18:23
Ondansetron 4 Mg Tablet PO 09/18/23 18:22
TIDPRN PRN
nausea
Oxycodone/Acetaminophen 1 tablet 08/21/23 18:23 08/22/23 17:54
Oxycodone 5 Mg/Apap 325 Mg (Percocet) PO 09/04/23 18:22 1 tablet
Q6HPRN PRN Administration
moderate pain
Polyethylene Glycol 17 grams 08/25/23 11:00 08/25/23 11:01
Polyethylene Glycol Powder 17 Grams Packet PO 09/22/23 10:59 17 grams
DAILY ARCHIE Administration
Sennosides 8.6 mg 08/25/23 20:00
Sennosides (Senokot) 8.6 Mg Tablet PO 09/22/23 19:59
BID ARCHIE
Sodium Chloride 0 flush 08/21/23 19:00 08/25/23 03:59
Sodium Chloride 0.9% (Flush) Syringe IV 09/18/23 18:59 1 flush
PER PROTOCOL ARCHIE Administration
Review of Systems
-
A full ROS was performed w/ pertinent findings as per HPI.
Physical Exam
-
General: Well Developed and No Apparent Distress
HEENT: Negative Jaundice
Cardiology: Normal Sinus Rhythm
Pulmonary: Clear
GI: Soft and Normal Bowel Sounds
Extremities: No C/C/E
Skin: Other (right chest wall drain in place)
Labs
Lab Results
WBC 6.2 10^3/uL (4.8-10.8) 08/25/23 04:56
RBC 2.57 10^6/uL (4.20-5.40) L 08/25/23 04:56
Hgb 8.1 g/dL (12.0-16.0) L 08/25/23 04:56
Hct 24.3 % (37.0-47.0) L 08/25/23 04:56
MCV 94.6 fL (81.0-99.0) 08/25/23 04:56
MCH 31.5 pg (27.0-31.0) H 08/25/23 04:56
MCHC 33.3 g/dL (33.0-37.0) 08/25/23 04:56
RDW 13.5 % (11.5-14.5) 08/25/23 04:56
Plt Count 281 10^3/uL (130-400) 08/25/23 04:56
MPV 9.3 fL (7.4-10.4) 08/25/23 04:56
Abs Immat Gran (auto) 0.1 10^3/uL (0-0.05) H 08/24/23 05:32
Absolute Neuts (auto) 4.7 10^3/uL (1.4-6.5) 08/24/23 05:32
Absolute Lymphs (auto) 1.4 10^3/uL (1.2-3.4) 08/24/23 05:32
Absolute Monos (auto) 0.3 10^3/uL (0.1-0.6) 08/24/23 05:32
Absolute Eos (auto) 0.2 10^3/uL (0-0.7) 08/24/23 05:32
Absolute Basos (auto) 0.0 10^3/uL (0-0.2) 08/24/23 05:32
Immature Gran % 1.0 % (0-0.5) H 08/24/23 05:32
Neutrophils % 71.0 % (42.2-75.2) 08/24/23 05:32
Lymphocytes % 20.2 % (20.5-51.1) L 08/24/23 05:32
Monocytes % 5.1 % (1.7-9.3) 08/24/23 05:32
Eosinophils % 2.4 % (0-6) 08/24/23 05:32
Basophils % 0.3 % (0-2) 08/24/23 05:32
Creatinine 1.1 mg/dL (0.6-1.0) H 08/25/23 04:56
Vital Signs
Vital Signs
Temp Pulse Resp BP Pulse Ox
98.1 F 84 16 130/83 100
08/25/23 07:19 08/25/23 07:19 08/25/23 07:19 08/25/23 07:19 08/25/23 07:19
--- NOTE | 2023-08-25 15:29 | W.PN.ID1 ---
Date of Service
Date of Service: August 25, 2023
Today's Communication
- start keflex, stop zosyn - plan for another 7 days of therapy; has completed outpatient augmentin - would not restart
Assessment / Plan
R Breast/Surgical Site Cellulitis
Possible Tissue Blocker And Cutter Contact Lens Infection
Port
- OR cultures: few strep, mixed anaerobes
- blood cultures x2 no growth to date
- OR findings c/w R sided infection
- s/p port removal - can be replaced outpatient when infection resolved
- start keflex, stop zosyn - plan for another 7 days of therapy; has completed outpatient augmentin - would not restart
- follow up with plastics
Chief Complaint
-: Cellulitis
Subjective / Review of Systems
afebrile
bp stable
without leukocytosis
HERACLIO
Vital Signs / Physical Exam
Vital Signs
Vital Signs
Temp Pulse Resp BP Pulse Ox
98.1 F 84 16 130/83 100
08/25/23 07:19 08/25/23 07:19 08/25/23 07:19 08/25/23 07:19 08/25/23 07:19
Physical Exam
Constitutional: No Acute Distress
Cardiovascular: Regular Rate and S1/S2; Negative Murmur or Rub
Pulmonary: Clear and Symmetric; Negative Wheezes or Rales
Gastrointestinal: Soft, Non Tender, Non Distended and Normal Bowel Sounds
Skin: Warm and Dry; Negative Rash or Jaundice
Objective Data
Lab Data
Lab Results
08/25/23 04:56
08/25/23 04:56
ESR > 145 mm/hour (0-20) H 08/21/23 16:17
PT 15.8 Sec (11.4-14.6) H 08/22/23 06:02
INR 1.28 08/22/23 06:02
APTT 39.6 Sec (23.4-35.0) H 08/22/23 06:02
Estimated Creat Clear 87 ml/min 08/25/23 04:56
Lactic Acid Cancelled 08/21/23 19:15
Total Bilirubin 0.7 mg/dl (0.2-1.3) 08/22/23 06:02
AST 26 U/L (14-36) 08/22/23 06:02
ALT 18 U/L (0-35) 08/22/23 06:02
Alkaline Phosphatase 124 U/L (38-126) 08/22/23 06:02
C-Reactive Protein 232.90 mg/L (0.0-10.00) H 08/21/23 16:17
Most recent labs reviewed.
Micro Results:
08/22/23 08:25 Anaerobic Culture - Preliminary
Breast - Right Culture pending. Anaerobic cultures are examined after 3
days incubation. Additional information to follow.
08/21/23 16:17 Blood Culture - Preliminary
Blood/Venous No Growth in 72 hours- Final report to follow
08/21/23 16:17 Blood Culture - Preliminary
Blood/Venous No Growth in 72 hours- Final report to follow
08/22/23 08:25 Wound Culture - Preliminary
Breast - Right Gram Stain - Preliminary
[2023-08-25 15:52] VITALS: BP 151/91
[2023-08-25] MEDS: XARELTO 20 MG PO (18:01)
[2023-08-25] MEDS: KEFLEX 1000 MG PO ×2 (18:01→22:39)
[2023-08-25] MEDS: PERCOCET 5/325 1 TABLET PO (18:10)
[2023-08-25 21:03] VITALS: BP 105/67
[2023-08-25 23:00] VITALS: BP 136/92
[2023-08-25] MEDS: TYLENOL 650 MG PO (23:13)
[2023-08-25] MEDS: ZOFRAN 4 MG PO (23:52)
[2023-08-26] MEDS: PERCOCET 5/325 1 TABLET PO ×2 (00:01→14:55)
--- NOTE | 2023-08-26 01:36 | PTCARENOTE ---
Patient c/o headache and back pain when lying down. She also became nauseous. Zofran 4mg po administered as ordered. Patient had also received Percocet 1 tab for pain. Shortly after she vomited into trash can. Order obtained by SABRINA, covering
house, for IV Zofran. However patient stated she was starting to feel better. Patient is currently sleeping quietly.
[2023-08-26 06:00] VITALS: BMI 42.0
[2023-08-26 06:24] LABS: Hematocrit 26.1 % (37.0-47.0); Hemoglobin 8.7 g/dL (12.0-16.0); Mean Corp Hgb Conc. 33.3 g/dL (33.0-37.0); Mean Corpuscular Hgb 31.6 pg (27.0-31.0); Mean Corpuscular Volume 94.9 fL (81.0-99.0); Mean Platelet Volume 9.2 fL (7.4-10.4); Platelet Count 287 10^3/uL (130-400); Red Blood Cell Count 2.75 10^6/uL (4.20-5.40); Red Cell Dist. Width 13.2 % (11.5-14.5); White Blood Cell Count 6.8 10^3/uL (4.8-10.8)
[2023-08-26 06:38] LABS: Blood Urea Nitrogen 10 mg/dl (7-17); Calcium 8.7 mg/dl (8.4-10.2); Carbon Dioxide 27 mmol/L (22-30); Chloride 102 mmol/L (98-107); Estimated Creatinine Clearance 106 ml/min; Glucose 104 mg/dl (70-99); Potassium 3.7 mmol/L (3.5-5.1); Sodium 137 mmol/L (135-145); eGFR > 60.00
[2023-08-26 07:16] VITALS: BP 151/82
[2023-08-26] MEDS: MIRALAX 17 GRAMS PO (09:44)
[2023-08-26] MEDS: SENOKOT 8.59999999999999964 MG PO ×2 (09:45→20:42)
[2023-08-26] MEDS: KEFLEX 1000 MG PO ×4 (09:45→21:54)
[2023-08-26] MEDS: VITAMIN B-12 1000 MCG PO (09:45)
[2023-08-26] MEDS: COLACE 100 MG PO ×2 (09:45→20:42)
[2023-08-26] MEDS: TYLENOL 1000 MG PO ×2 (09:55→20:41)
--- NOTE | 2023-08-26 11:11 | CM ---
CM met with pt at bedside. Offered VN for drain management. Pt declined and reports having a follow up appt already made. CM to continue to follow and assess for needs.
--- NOTE | 2023-08-26 13:25 | W.PN.HOSP.TC ---
Today's Communication/Plan
-
She has nausea today after Keflex
Watch overnight
Start PPI
If stable discharge tomorrow
Assessment / Plan
Assessment / Plan
On examination awake and alert not in any distress
Cardiovascular system S1-S2 appreciated
Bilateral mastectomy right breast with a drain in
Sutures noted, no discharge
Abdomen soft and nontender
No pedal edema or calf tenderness
Left upper extremity lymphedema
Mild head ache resolved. Has nausea
# Right breast prior surgical site cellulitis with suspected behavioral science chair infection
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
s/p OR Removal of right infected tissue behavioral science chair, right capsulectomy Gross purulence noted by Dr. Whiting 08/22/23
No leukocytosis
Zosyn changed to keflex
f/u on OR aerobic and anaerobic cultures preliminary with few strep species
#History of stage 3A breast cancer ER/TN positive. HER2 negative PIK3 positive
Status post double mastectomy, left sided radiation and chemo
PET scan 08/16/2022-blastic osseous metastasis in the thoracic and lumbar spine
Verzenio held by Heme as it can cause cytopenia
Monthly Faslodex
Follows up with Dr. Potter outpatient
s/p port removal on 08/23
# Elevated creatinine-patient did not receive IV contrast for the CT on 08/22/2023
#Constipation- Resolved
#Anemia
-no e/o active bleeding
-likely some degree post-op anemia
-iron studies with anemia 2/2 inflammation
-low normal B12 - continue supplementation
#Left arm lymphedema
sleeve
# Neuropathy
#Obesity with BMI 42
Weight loss advised
# History of pulmonary embolism 03/09/2023
Left upper and lower lobes
Patient was on Xarelto 20 mg which she stopped in July
Hematology oncology evaluation appreciated
Xarelto Restarted
# History of pleural effusion with thoracentesis 08/15/2019
# Hypoalbuminemia
# Ex-smoker
#DVTppx- Xarelto
#Full code
Anticipated Discharge: Within 24 hours
Subjective/Interval History
-
Date of Service: August 26, 2023
Objective Data
-
Labs:
Laboratory Results
08/26/23
04:50
WBC 6.8
Hgb 8.7 L
Hct 26.1 L
Plt Count 287
Sodium 137
Potassium 3.7
Chloride 102
Carbon Dioxide 27
BUN 10
Creatinine 0.9
Glucose 104 H
Calcium 8.7
Vital Signs:
Vital Signs
Temp Pulse Resp BP Pulse Ox
98.0 F 92 16 151/82 97
08/26/23 07:16 08/26/23 07:16 08/26/23 07:16 08/26/23 07:16 08/26/23 07:16
I&O
08/25/23 08/26/23 08/27/23
06:59 06:59 06:59
Intake Total 1490 / 1490 2104
Output Total 20 / 20 50 / 50
Balance 1470 / 1470 2054
[2023-08-26] MEDS: PROTONIX 40 MG PO (14:54)
--- NOTE | 2023-08-26 14:56 | W.PN.ID1 ---
Date of Service
Date of Service: August 26, 2023
Today's Communication
- continue keflex - plan for another 6 days of therapy; has completed outpatient augmentin - would not restart
Assessment / Plan
R Breast/Surgical Site Cellulitis
Possible Tissue Advertising Space Clerk Infection
Port
- OR cultures: few strep on gram stain
- blood cultures x2 no growth to date
- OR findings c/w R sided infection
- s/p port removal - can be replaced outpatient when infection resolved
- continue keflex - plan for another 6 days of therapy; has completed outpatient augmentin - would not restart
- follow up with plastics
Chief Complaint
-: Cellulitis
Subjective / Review of Systems
afebrile
bp stable
nausea, headache last night - resolved today
surgical sites healing very nicely
Vital Signs / Physical Exam
Vital Signs
Vital Signs
Temp Pulse Resp BP Pulse Ox
98.0 F 92 16 151/82 97
08/26/23 07:16 08/26/23 07:16 08/26/23 07:16 08/26/23 07:16 08/26/23 07:16
Physical Exam
Constitutional: No Acute Distress
Cardiovascular: Regular Rate and S1/S2; Negative Murmur or Rub
Pulmonary: Clear and Symmetric; Negative Wheezes or Rales
Gastrointestinal: Soft, Non Tender, Non Distended and Normal Bowel Sounds
Skin: Warm and Dry; Negative Rash or Jaundice
Wound: Other (R breast surgical site healing nicely - no further edema or erythema; port site healing, no erythema, warmth or swelling)
Objective Data
Lab Data
Lab Results
08/26/23 04:50
08/26/23 04:50
ESR > 145 mm/hour (0-20) H 08/21/23 16:17
PT 15.8 Sec (11.4-14.6) H 08/22/23 06:02
INR 1.28 08/22/23 06:02
APTT 39.6 Sec (23.4-35.0) H 08/22/23 06:02
Estimated Creat Clear 106 ml/min 08/26/23 04:50
Lactic Acid Cancelled 08/21/23 19:15
Total Bilirubin 0.7 mg/dl (0.2-1.3) 08/22/23 06:02
AST 26 U/L (14-36) 08/22/23 06:02
ALT 18 U/L (0-35) 08/22/23 06:02
Alkaline Phosphatase 124 U/L (38-126) 08/22/23 06:02
C-Reactive Protein 232.90 mg/L (0.0-10.00) H 08/21/23 16:17
Most recent labs reviewed.
Micro Results:
08/21/23 16:17 Blood Culture - Preliminary
Blood/Venous No Growth in 4 days- Final report to follow
08/21/23 16:17 Blood Culture - Preliminary
Blood/Venous No Growth in 4 days- Final report to follow
08/22/23 08:25 Anaerobic Culture - Preliminary
Breast - Right Culture pending. Anaerobic cultures are examined after 3
days incubation. Additional information to follow.
08/22/23 08:25 Wound Culture - Preliminary
Breast - Right Gram Stain - Preliminary
[2023-08-26 16:28] VITALS: BP 109/72
[2023-08-26] MEDS: XARELTO 20 MG PO (18:48)
[2023-08-26 23:00] VITALS: BP 126/85
[2023-08-27 05:59] VITALS: BMI 42.2
[2023-08-27 06:09] LABS: Hematocrit 26.7 % (37.0-47.0); Hemoglobin 8.7 g/dL (12.0-16.0); Mean Corp Hgb Conc. 32.6 g/dL (33.0-37.0); Mean Platelet Volume 9.1 fL (7.4-10.4); Platelet Count 281 10^3/uL (130-400); Red Blood Cell Count 2.81 10^6/uL (4.20-5.40); Red Cell Dist. Width 13.3 % (11.5-14.5); White Blood Cell Count 6.1 10^3/uL (4.8-10.8)
[2023-08-27 07:30] VITALS: BP 113/73
[2023-08-27] MEDS: KEFLEX 1000 MG PO ×2 (07:50→12:44)
[2023-08-27] MEDS: PROTONIX 40 MG PO (07:50)
[2023-08-27] MEDS: TYLENOL 1000 MG PO (07:50)
[2023-08-27] MEDS: SENOKOT 8.59999999999999964 MG PO (07:51)
[2023-08-27] MEDS: COLACE 100 MG PO (07:51)
[2023-08-27] MEDS: VITAMIN B-12 1000 MCG PO (07:51)
[2023-08-27] MEDS: MIRALAX 17 GRAMS PO (07:52)
--- NOTE | 2023-08-27 10:14 | CM ---
Chart reviewed. Spoke with pt
Discussed IMM
Offered VN - pt declined. Reports feels comfortable emptying drain and has f/u appt this week with doctor
Plan - Home - no needs
--- NOTE | 2023-08-27 11:52 | W.PN.HOSP.TC ---
Addendum entered and electronically signed by Lit Kohli MD 08/28/23 07:50:
Elevated creat only
Addendum entered and electronically signed by Lit Kohli MD 08/27/23 13:24:
D/W RN
Arrange VN
CT neg
Discharge time 33 min
Original Note:
Today's Communication/Plan
-
Discharge plannning
Assessment / Plan
Assessment / Plan
On examination awake and alert not in any distress
Cardiovascular system S1-S2 appreciated
Bilateral mastectomy right breast with a drain in
Sutures noted, no discharge
Abdomen soft and nontender
No pedal edema or calf tenderness
Left upper extremity lymphedema
Mild head ache resolved. Has nausea
# Right breast prior surgical site cellulitis with suspected aquatic ecologist infection
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
s/p OR Removal of right infected tissue aquatic ecologist, right capsulectomy Gross purulence noted by Dr. Whiting 08/22/23
No leukocytosis
Zosyn changed to keflex
f/u on OR aerobic and anaerobic cultures preliminary with few strep species
#Head ache -happened yesterday and today.
With new start of anticoagulation will get a CT of the head
#History of stage 3A breast cancer ER/HI positive. HER2 negative PIK3 positive
Status post double mastectomy, left sided radiation and chemo
PET scan 08/16/2022-blastic osseous metastasis in the thoracic and lumbar spine
Verzenio held by Heme as it can cause cytopenia
Monthly Faslodex
Follows up with Dr. Potter outpatient
s/p port removal on 08/23
# Elevated creatinine-patient did not receive IV contrast for the CT on 08/22/2023
Resolved
#Constipation- Resolved
#Anemia
-no e/o active bleeding
-likely some degree post-op anemia
-iron studies with anemia 2/2 inflammation
-low normal B12 - continue supplementation
#Left arm lymphedema
sleeve
# Neuropathy
#Obesity with BMI 42
Weight loss advised
# History of pulmonary embolism 03/09/2023
Left upper and lower lobes
Patient was on Xarelto 20 mg which she stopped in July
Hematology oncology evaluation appreciated
Xarelto Restarted
# History of pleural effusion with thoracentesis 08/15/2019
# Hypoalbuminemia
# Ex-smoker
#DVT ppx- Xarelto
#Full code
D/W ID
D/W
Anticipated Discharge: Today
Subjective/Interval History
-
Date of Service: August 27, 2023
Objective Data
-
Labs:
Laboratory Results
08/27/23
05:36
WBC 6.1
Hgb 8.7 L
Hct 26.7 L
Plt Count 281
Vital Signs:
Vital Signs
Temp Pulse Resp BP Pulse Ox
97.9 F 84 18 113/73 98
08/27/23 07:30 08/27/23 07:30 08/27/23 07:30 08/27/23 07:30 08/27/23 07:30
I&O
08/26/23 08/27/23 08/28/23
06:59 06:59 06:59
Intake Total 2104 / 2104 1560 / 1560
Output Total 50 / 50 35 / 35
Balance 2054 1525 / 1525
--- NOTE | 2023-08-27 12:24 | W.PN.ONC2 ---
Today's Communication / Plan
-
- OK for discharge.
Impression
Impression
right chest wall infection - s/p tissue systems software manager removal, s/p medi-port removal
metastatic breast cancer - verzenio/ faslodex - w/ Dr. Potter
PE
Plan
Plan
1. Right chest wall infection - s/p removal of tissue systems software manager as well as medi-port
-antibiotics as per ID
-plastic surgery management
2. PE
-resume anticoagulation if ok w/ surgery - was on xarelto 20mg daily
-in the setting of metastatic malignancy - long-term anticoagulation would be recommended for potential risk reduction of recurrence of VTE
3. Metastatic breast cancer
-Ok to resume Verzenio on discharge. Will reschedule missed Fulvestrant shot.
-follow CBC
-f/u w/ Dr. Potter as outpt
Subjective/Objective
Chief Complaint
chest wall infection
Subjective
pt feeling well with no complaints today. hgb stable at 8.7 g/dl.
Vital Signs:
Vital Signs
Temp Pulse Resp BP Pulse Ox
97.9 F 84 18 113/73 98
08/27/23 07:30 08/27/23 07:30 08/27/23 07:30 08/27/23 07:30 08/27/23 07:30
Lab Results:
Laboratory Data
WBC 6.1 10^3/uL (4.8-10.8) 08/27/23 05:36
Hgb 8.7 g/dL (12.0-16.0) L 08/27/23 05:36
Plt Count 281 10^3/uL (130-400) 08/27/23 05:36
PT 15.8 Sec (11.4-14.6) H 08/22/23 06:02
INR 1.28 08/22/23 06:02
APTT 39.6 Sec (23.4-35.0) H 08/22/23 06:02
eGFR > 60.00 08/26/23 04:50
Physical Exam
HEENT: No Jaundice
Cardiology: Normal Sinus Rhythm
Pulmonary: Clear
Extremities: No Edema
Neuro: Non Focal
Review of Systems
Review of Systems
Constitutional: Reports Fatigue
Respiratory: Denies Dyspnea
Gastrointestinal: Denies Nausea/Vomiting
--- NOTE | 2023-08-27 12:31 | W.PN.ID1 ---
Date of Service
Date of Service: August 27, 2023
Today's Communication
c/w keflex
Assessment / Plan
R Breast/Surgical Site Cellulitis
Possible Tissue Sales Representative Womens Health Infection
Port
- OR cultures: few strep on gram stain
- blood cultures x2 no growth to date
- OR findings c/w R sided infection
- s/p port removal - can be replaced outpatient when infection resolved
- continue keflex - plan for another 5 days of therapy; has completed outpatient augmentin - would not restart
- follow up with plastics
Chief Complaint
-: Cellulitis
Subjective / Review of Systems
afebrile
bp stable
tolerating current therapies
no new complaints
Vital Signs / Physical Exam
Vital Signs
Vital Signs
Temp Pulse Resp BP Pulse Ox
97.9 F 84 18 113/73 98
08/27/23 07:30 08/27/23 07:30 08/27/23 07:30 08/27/23 07:30 08/27/23 07:30
Physical Exam
Constitutional: No Acute Distress
Cardiovascular: Regular Rate
Pulmonary: Symmetric and Non Labored
Gastrointestinal: Non Tender
Wound: Other (dressing clean/dry/intact)
Objective Data
Lab Data
Lab Results
08/27/23 05:36
08/26/23 04:50
ESR > 145 mm/hour (0-20) H 08/21/23 16:17
PT 15.8 Sec (11.4-14.6) H 08/22/23 06:02
INR 1.28 08/22/23 06:02
APTT 39.6 Sec (23.4-35.0) H 08/22/23 06:02
Estimated Creat Clear 106 ml/min 08/26/23 04:50
Lactic Acid Cancelled 08/21/23 19:15
Total Bilirubin 0.7 mg/dl (0.2-1.3) 08/22/23 06:02
AST 26 U/L (14-36) 08/22/23 06:02
ALT 18 U/L (0-35) 08/22/23 06:02
Alkaline Phosphatase 124 U/L (38-126) 08/22/23 06:02
C-Reactive Protein 232.90 mg/L (0.0-10.00) H 08/21/23 16:17
Most recent labs reviewed.
Micro Results:
08/22/23 08:25 Wound Culture - Final
Breast - Right Gram Stain - Final
08/22/23 08:25 Anaerobic Culture - Final
Breast - Right NO ANAEROBES ISOLATED
08/21/23 16:17 Blood Culture - Final
Blood/Venous No Growth - Final Report
08/21/23 16:17 Blood Culture - Final
Blood/Venous No Growth - Final Report
[2023-08-27] MEDS: PERCOCET 5/325 1 TABLET PO (12:48)
--- NOTE | 2023-08-27 13:22 | W.DS.TRANS ---
Addendum entered and electronically signed by Lit Kohli MD 08/27/23 16:16:
Dictation- [id number]
Original Note:
DC Summary - Social Work Case Manager
-
Discharge Instructions:
Discharge Diagnosis/Procedures Right breast cellulitis help desk agent infection
status post OR removal of the tissue help desk agent,
right capsulectomy 08/22/2023. Breast cancer,
anemia, left arm lymphedema, history of
pulmonary embolism
Diet As tolerated
Activity As tolerated
Driving Restrictions As prior to admission
Other Services VN
Stop these medications: Stop Augmentin
Instructions:
Stand-Alone Forms:
Changes to Home Medications: Yes
Discharge Medications:
DC Medications w/original date entered in [employer]
abemaciclib 150 mg tablet (Verzenio) 150 mg PO BID 08/29/19
ondansetron HCl 4 mg tablet 4 mg PO TIDPRN PRN nausea 08/29/19
cyanocobalamin (vitamin B-12) 100 mcg tablet 1,000 mcg PO DAILY 12/17/20
acetaminophen 500 mg tablet 1,000 mg PO Q6H PRN mild pain 08/21/23
oxycodone-acetaminophen 5 mg-325 mg tablet 1 tab PO Q6HPRN PRN moderate pain 08/21/23
cephalexin 500 mg capsule 1,000 mg PO QID Infection #46 caps 08/26/23
pantoprazole 40 mg tablet,delayed release 40 mg PO DAILY Gastrointestinal issue #30 tabs 08/26/23
rivaroxaban 20 mg tablet (Xarelto) 20 mg PO QPM Blood clot prevention/tx #60 tabs 08/26/23
Home Medication Changes
cephalexin 500 mg capsule 1,000 mg PO QID Infection #46 caps 08/26/23
pantoprazole 40 mg tablet,delayed release 40 mg PO DAILY Gastrointestinal issue #30 tabs 08/26/23
rivaroxaban 20 mg tablet (Xarelto) 20 mg PO QPM Blood clot prevention/tx #60 tabs 08/26/23
Pending Results: No
--- NOTE | 2023-08-27 14:46 | PN.CDI ---
CDI
- -
CDI:
Physician Documentation Request
Admit Date: 08/21/23 17:02
Dear Doctor Kamilla,
Clinical Indicators:
Patient admitted with right breast prior surgical site cellulitis with suspected meat washer infection; s/p removal of right tissue meat washer and right capsulectomy 08/22.
08/25 ID PN, 'HERACLIO'
08/25 PN 'Elevated creatinine-patient did not receive IV contrast for the CT on 08/22/2023 IV fluids'
Cr/GFR trend:
08/23/23 08/24/23 08/24/23
05:10 05:32 04:56
Creatinine 0.7 0.9 1.1 H
eGFR > 60.00 > 60.00 58.61
Due to potentially conflicting documentation, please clarify which of the following accurately represents the patient's renal status:
HERACLIO
Elevated creatinine only (documentation complete)
Other, please specify
Criteria for HERACLIO*
1 Increase in serum creatinine by > or = to 0.3 mg/dL (> or = to 26.5 micromol/L) within 48 hours, OR
2 Increase in serum creatinine to > or = to 1.5 times baseline, which is known or presumed to have occurred within 7 days, OR
3 Urine volume < 0.5 nL/kg/hour for six hours
Use of terms such as suspected, likely, concern for, or probable (associated with a specific diagnosis that is being evaluated, monitored, or treated as if it exists) are acceptable and can be coded in the inpatient setting, when documented at the
time of discharge.
Thank you,
SUKH Kim RN
CDI Specialist
available via tiger text
Please use your independent medical judgment in providing your response.
--- NOTE | 2023-08-27 15:03 | W.[place]-PDMP ---
[place]-PD[place]
-
Checked the [place]- Prescription Drug Monitoring Program website, no red flags identified; safe to proceed with prescription.
--- NOTE | 2023-09-05 16:07 | OIDSOC ---
DIANNA referral from infusion center RN re: counseling. DIANNA spoke with the patient today. She expressed that her primary concern is financial. She was recently in the hospital and is aware that she will have a co-pay but she is not sure what the
co-pay will be and has limited income and will need assistance with the bills. DIANNA reviewed the availability to apply for hospital based financial assistance program which could help with the forgiveness of her co-pays, if approved. DIANNA will discuss
with financial counselor about next steps for patient and follow up with the patient re: application process.
--- NOTE | 2023-09-05 16:12 | OIDSOC ---
DIANNA referral from [facility] nurse re: counseling. DIANNA reached out to patient. She expressed that her primary concern is related to her hospital bill. She is getting bills and EOBs from her insurance companies. Her income is limited and she is not sure
how she will be able to pay for the bill. DIANNA reviewed hospital financial assistance program. Will discuss with financial counselor about how to proceed. Pt. has an appointment in the [facility] on 09/24/23. Her friend will be transporting her to and
from the [facility]. She previously worked with [facility] DIANNA Mckeon on a [employer] to help with the cost of one of her medications.
== END 2023-08-27 15:26 | disposition home or self-care (01) | DRG 908 ==
LOC: 2 SOUTH 17:02
PROVIDERS: Hospitalist; Physician Assistant Medical; Radiology Vascular & Interventional Radiology; Student in an Organized Health Care Education/Training Program; Surgery Plastic and Reconstructive Surgery; ADMITTING PHYSICIAN Internal Medicine; ATTENDING PHYSICIAN Hospitalist; CONSULT PHYSICIAN Internal Medicine Hematology & Oncology; EMERGENCY PHYSICIAN Student in an Organized Health Care Education/Training Program
PROC: 0HPT0NZ Removal of Tissue Expander from Right Breast, Open Approach (ICD-10-PCS; 2023-08-22)
PROC: 05PYX3Z Removal of Infusion Device from Upper Vein, External Approach (ICD-10-PCS; 2023-08-23)
PROC: 0JPT0XZ Removal of Tunneled Vascular Access Device from Trunk Subcutaneous Tissue and Fascia, Open Approach (ICD-10-PCS; 2023-08-23)
DX: T85.79XA Infection and inflammatory reaction due to other internal prosthetic devices, implants and grafts, initial encounter (principal); C79.51 Secondary malignant neoplasm of bone; Z68.41 Body mass index [BMI] 40.0-44.9, adult; N61.0 Mastitis without abscess; I89.0 Lymphedema, not elsewhere classified; E87.6 Hypokalemia; G62.9 Polyneuropathy, unspecified; R11.0 Nausea; R51.9 Headache, unspecified; D63.0 Anemia in neoplastic disease; K59.00 Constipation, unspecified; E88.09 Other disorders of plasma-protein metabolism, not elsewhere classified; E66.01 Morbid (severe) obesity due to excess calories; Y83.1 Surgical operation with implant of artificial internal device as the cause of abnormal reaction of the patient, or of later complication, without mention of misadventure at the time of the procedure; Y92.9 Unspecified place or not applicable; Z17.0 Estrogen receptor positive status [ER+]; Z90.13 Acquired absence of bilateral breasts and nipples; Z86.711 Personal history of pulmonary embolism; Z87.891 Personal history of nicotine dependence; Z88.5 Allergy status to narcotic agent; Z92.21 Personal history of antineoplastic chemotherapy; Z92.3 Personal history of irradiation; Z85.3 Personal history of malignant neoplasm of breast
CPT/HCPCS: 88304; 36415; 36590; 70450; 80048; 80053; 82607; 82728; 82746; 83540; 83550; 83605; 85018; 85025; 85027; 85610; 85652; 85730; 86140; 86300; 87040; 87070; 87075; 87077; 87205; 96374; 96375; 99284; J2997

== ENCOUNTER 2023-08-31 11:32 | Outpatient (RCR) | payer OTHER, SELFPAY ==
[2023-08-21 12:18] VITALS: BP 117/93
[2023-08-21 12:30] LABS: % Basophils 0.3 % (0-2); % Eosinophils 1.5 % (0-6); % Immature Granulocytes 1.6 % (0-0.5); % Lymphocytes 9.2 % (20.5-51.1); % Monocytes 6.3 % (1.7-9.3); % Neutrophils 81.1 % (42.2-75.2); Absolute Eosinophils 0.1 10^3/uL (0-0.7); Absolute Immature Granulocytes 0.1 10^3/uL (0-0.05); Absolute Lymphocytes 0.8 10^3/uL (1.2-3.4); Absolute Monocytes 0.6 10^3/uL (0.1-0.6); Absolute Neutrophils 7.2 10^3/uL (1.4-6.5); Hematocrit 32.2 % (37.0-47.0); Hemoglobin 10.7 g/dL (12.0-16.0); Mean Corp Hgb Conc. 33.2 g/dL (33.0-37.0); Mean Corpuscular Hgb 30.9 pg (27.0-31.0); Mean Corpuscular Volume 93.1 fL (81.0-99.0); Mean Platelet Volume 8.8 fL (7.4-10.4); Platelet Count 259 10^3/uL (130-400); Red Blood Cell Count 3.46 10^6/uL (4.20-5.40); Red Cell Dist. Width 13.2 % (11.5-14.5); White Blood Cell Count 8.9 10^3/uL (4.8-10.8)
[2023-08-21] MEDS: CATHFLO/ACTIVASE 2 MG IV (12:36)
[2023-08-21 13:20] LABS: ALT (SGPT) 22 U/L (0-35); AST (SGOT) 29 U/L (14-36); Albumin 3.4 g/dl (3.5-5.0); Alkaline Phosphatase 149 U/L (38-126); Blood Urea Nitrogen 9 mg/dl (7-17); Calcium 9.2 mg/dl (8.4-10.2); Carbon Dioxide 26 mmol/L (22-30); Chloride 97 mmol/L (98-107); Glucose 118 mg/dl (70-99); Potassium 3.2 mmol/L (3.5-5.1); Sodium 135 mmol/L (135-145); Total Bilirubin 0.9 mg/dl (0.2-1.3); Total Protein 6.4 g/dl (6.3-8.2); eGFR > 60.00
--- NOTE | 2023-08-21 15:33 | PTCARENOTE ---
Pt arrived with complaints of right breast swelling/pain/warm to touch. Liv Gamboa CERTIFIED ADDICTION COUNSELOR assessed patient. Dr. Potter notified and Dr. Whiting notified. Patient sent to ER for further evaluation of right breast. In addition, right chest port accessed
with no blood return. TPA port x1 with no blood return. Pt transferred to the emergency room--notified charge nurse that port will need second dose of TPA for port.
[2023-08-23 20:37] LABS: CA 27-29 31.4 U/mL (<=39.0)
--- NOTE | 2023-08-27 13:59 | OIDSOC ---
Was referred to pt by dept, but made aware that pt was sent to ED for eval. Called pt today, who is currently being discharged. She states she does feel some improvement, but is eager to speak with Dr. Potter at [place], and reschedule her missed
tx. Offered emotional support, and sent her an email with my contact info as requested. Encouraged her to reach out should she need anything, and will try to introduce myself in person at her next appt. Federico
[2023-08-31 11:46] VITALS: BP 134/86
[2023-08-31] MEDS: FASLODEX 250 MG IM ×2 (11:53)
== END 2023-09-13 23:59 | disposition home or self-care (01) ==
LOC: OID 11:32
PROVIDERS: ATTENDING PHYSICIAN Internal Medicine Hematology & Oncology; FAMILY PHYSICIAN Family Medicine; PRIMARYCARE PHYSICIAN Family Medicine
DX: Z51.11 Encounter for antineoplastic chemotherapy (principal); C50.212 Malignant neoplasm of upper-inner quadrant of left female breast; C79.51 Secondary malignant neoplasm of bone
CPT/HCPCS: 36415; 80053; 85025; 86300; 96374; 96375; 96402; J2997; J9395

== ENCOUNTER 2023-10-05 11:35 | Outpatient (RCR) | payer OTHER, SELFPAY ==
[2023-10-04 12:04] LABS: % Basophils 0.9 % (0-2); % Eosinophils 1.4 % (0-6); % Immature Granulocytes 0.3 % (0-0.5); % Lymphocytes 24.5 % (20.5-51.1); % Monocytes 7.5 % (1.7-9.3); % Neutrophils 65.4 % (42.2-75.2); Absolute Eosinophils 0.1 10^3/uL (0-0.7); Absolute Lymphocytes 0.9 10^3/uL (1.2-3.4); Absolute Monocytes 0.3 10^3/uL (0.1-0.6); Absolute Neutrophils 2.3 10^3/uL (1.4-6.5); Hematocrit 30.1 % (37.0-47.0); Hemoglobin 9.9 g/dL (12.0-16.0); Mean Corp Hgb Conc. 32.9 g/dL (33.0-37.0); Mean Corpuscular Hgb 31.2 pg (27.0-31.0); Mean Platelet Volume 9.1 fL (7.4-10.4); Platelet Count 183 10^3/uL (130-400); Red Blood Cell Count 3.17 10^6/uL (4.20-5.40); Red Cell Dist. Width 15.1 % (11.5-14.5); White Blood Cell Count 3.5 10^3/uL (4.8-10.8)
[2023-10-04 12:58] LABS: ALT (SGPT) < 10 U/L (0-35); AST (SGOT) 21 U/L (14-36); Alkaline Phosphatase 63 U/L (38-126); Blood Urea Nitrogen 10 mg/dl (7-17); Calcium 9.2 mg/dl (8.4-10.2); Carbon Dioxide 27 mmol/L (22-30); Chloride 104 mmol/L (98-107); Glucose 96 mg/dl (70-99); Potassium 3.7 mmol/L (3.5-5.1); Sodium 137 mmol/L (135-145); Total Bilirubin 0.7 mg/dl (0.2-1.3); eGFR > 60.00
[2023-10-05 11:44] VITALS: BP 139/88
[2023-10-05] MEDS: FASLODEX 250 MG IM ×2 (11:59→12:00)
== END 2023-10-08 08:40 | disposition home or self-care (01) ==
LOC: OID 11:35
PROVIDERS: ATTENDING PHYSICIAN Internal Medicine Hematology & Oncology; PRIMARYCARE PHYSICIAN Family Medicine
DX: Z51.11 Encounter for antineoplastic chemotherapy (principal); C50.212 Malignant neoplasm of upper-inner quadrant of left female breast; C79.51 Secondary malignant neoplasm of bone
CPT/HCPCS: 36415; 80053; 85025; 96402; J9395

== ENCOUNTER 2023-11-02 11:39 | Outpatient (RCR) | payer OTHER, SELFPAY ==
[2023-10-30 13:04] LABS: % Basophils 0.8 % (0-2); % Immature Granulocytes 0.3 % (0-0.5); % Lymphocytes 20.4 % (20.5-51.1); % Neutrophils 70.5 % (42.2-75.2); Absolute Eosinophils 0.1 10^3/uL (0-0.7); Absolute Lymphocytes 0.8 10^3/uL (1.2-3.4); Absolute Monocytes 0.2 10^3/uL (0.1-0.6); Absolute Neutrophils 2.8 10^3/uL (1.4-6.5); Hematocrit 32.1 % (37.0-47.0); Hemoglobin 10.5 g/dL (12.0-16.0); Mean Corp Hgb Conc. 32.7 g/dL (33.0-37.0); Mean Corpuscular Hgb 31.3 pg (27.0-31.0); Mean Corpuscular Volume 95.8 fL (81.0-99.0); Platelet Count 192 10^3/uL (130-400); Red Blood Cell Count 3.35 10^6/uL (4.20-5.40); Red Cell Dist. Width 15.3 % (11.5-14.5)
[2023-10-30 15:05] LABS: Alkaline Phosphatase 70 U/L (38-126); Blood Urea Nitrogen 7 mg/dl (7-17); Carbon Dioxide 26 mmol/L (22-30); Chloride 102 mmol/L (98-107); Glucose 101 mg/dl (70-99); Potassium 4.1 mmol/L (3.5-5.1); Sodium 137 mmol/L (135-145); eGFR > 60.00
[2023-10-30 15:06] LABS: ALT (SGPT) < 10 U/L (0-35); AST (SGOT) 23 U/L (14-36); Albumin 4.2 g/dl (3.5-5.0); Calcium 9.8 mg/dl (8.4-10.2); Total Bilirubin 0.6 mg/dl (0.2-1.3); Total Protein 7.2 g/dl (6.3-8.2)
[2023-11-01 22:04] LABS: CA 27-29 43.7 U/mL (<=39.0)
[2023-11-02 11:51] VITALS: BP 137/89
[2023-11-02] MEDS: FASLODEX 250 MG IM ×2 (12:08→12:09)
== END 2023-11-05 11:03 | disposition home or self-care (01) ==
LOC: OID 11:39
PROVIDERS: ATTENDING PHYSICIAN Internal Medicine Hematology & Oncology; PRIMARYCARE PHYSICIAN Family Medicine
DX: Z51.11 Encounter for antineoplastic chemotherapy (principal); C50.212 Malignant neoplasm of upper-inner quadrant of left female breast (principal); C79.51 Secondary malignant neoplasm of bone
CPT/HCPCS: 36415; 80053; 85025; 86300; 96402; J9395

== ENCOUNTER 2023-11-30 11:35 | Outpatient (RCR) | payer OTHER, SELFPAY ==
[2023-11-27 10:51] LABS: % Basophils 0.5 % (0-2); % Eosinophils 1.9 % (0-6); % Immature Granulocytes 0.5 % (0-0.5); % Lymphocytes 26.3 % (20.5-51.1); % Monocytes 6.4 % (1.7-9.3); % Neutrophils 64.4 % (42.2-75.2); Absolute Eosinophils 0.1 10^3/uL (0-0.7); Absolute Monocytes 0.2 10^3/uL (0.1-0.6); Absolute Neutrophils 2.4 10^3/uL (1.4-6.5); Hematocrit 31.2 % (37.0-47.0); Hemoglobin 10.4 g/dL (12.0-16.0); Mean Corp Hgb Conc. 33.3 g/dL (33.0-37.0); Mean Corpuscular Hgb 32.1 pg (27.0-31.0); Mean Corpuscular Volume 96.3 fL (81.0-99.0); Mean Platelet Volume 9.5 fL (7.4-10.4); Platelet Count 166 10^3/uL (130-400); Red Blood Cell Count 3.24 10^6/uL (4.20-5.40); Red Cell Dist. Width 15.8 % (11.5-14.5); White Blood Cell Count 3.8 10^3/uL (4.8-10.8)
[2023-11-27 11:34] LABS: ALT (SGPT) 11 U/L (0-35); AST (SGOT) 20 U/L (14-36); Albumin 3.8 g/dl (3.5-5.0); Alkaline Phosphatase 60 U/L (38-126); Blood Urea Nitrogen 11 mg/dl (7-17); Calcium 9.5 mg/dl (8.4-10.2); Carbon Dioxide 24 mmol/L (22-30); Chloride 108 mmol/L (98-107); Glucose 86 mg/dl (70-99); Potassium 3.7 mmol/L (3.5-5.1); Sodium 139 mmol/L (135-145); Total Bilirubin 0.4 mg/dl (0.2-1.3); Total Protein 6.8 g/dl (6.3-8.2); eGFR > 60.00
[2023-11-30] MEDS: FASLODEX 250 MG IM ×2 (12:27→12:28)
[2023-11-30 12:41] VITALS: BP 114/73
== END 2023-12-03 09:22 | disposition home or self-care (01) ==
LOC: OID 11:35
PROVIDERS: ATTENDING PHYSICIAN Internal Medicine Hematology & Oncology; PRIMARYCARE PHYSICIAN Family Medicine
DX: Z51.11 Encounter for antineoplastic chemotherapy (principal); C50.212 Malignant neoplasm of upper-inner quadrant of left female breast (principal); C79.51 Secondary malignant neoplasm of bone
CPT/HCPCS: 36415; 80053; 85025; 86300; 96402; J9395

== ENCOUNTER 2023-12-28 11:28 | Outpatient (RCR) | payer OTHER, SELFPAY ==
[2023-12-25 14:36] LABS: % Basophils 0.5 % (0-2); % Eosinophils 1.1 % (0-6); % Immature Granulocytes 0.3 % (0-0.5); % Lymphocytes 24.5 % (20.5-51.1); % Monocytes 5.5 % (1.7-9.3); % Neutrophils 68.1 % (42.2-75.2); Absolute Lymphocytes 0.9 10^3/uL (1.2-3.4); Absolute Monocytes 0.2 10^3/uL (0.1-0.6); Absolute Neutrophils 2.6 10^3/uL (1.4-6.5); Hematocrit 32.2 % (37.0-47.0); Hemoglobin 10.7 g/dL (12.0-16.0); Mean Corp Hgb Conc. 33.2 g/dL (33.0-37.0); Mean Corpuscular Hgb 32.5 pg (27.0-31.0); Mean Corpuscular Volume 97.9 fL (81.0-99.0); Mean Platelet Volume 9.6 fL (7.4-10.4); Nucleated Red Blood Cells % 0 %; Platelet Count 156 10^3/uL (130-400); Red Blood Cell Count 3.29 10^6/uL (4.20-5.40); Red Cell Dist. Width 16.1 % (11.5-14.5); White Blood Cell Count 3.8 10^3/uL (4.8-10.8)
[2023-12-25 14:55] LABS: ALT (SGPT) < 10 U/L (0-35); AST (SGOT) 22 U/L (14-36); Alkaline Phosphatase 65 U/L (38-126); Blood Urea Nitrogen 7 mg/dl (7-17); Calcium 9.3 mg/dl (8.4-10.2); Carbon Dioxide 25 mmol/L (22-30); Chloride 106 mmol/L (98-107); Glucose 95 mg/dl (70-99); Potassium 4.2 mmol/L (3.5-5.1); Sodium 138 mmol/L (135-145); Total Bilirubin 0.5 mg/dl (0.2-1.3); Total Protein 7.2 g/dl (6.3-8.2); eGFR > 60.00
[2023-12-27 12:13] LABS: CA 27-29 48.8 U/mL (<=39.0)
[2023-12-28 11:39] VITALS: BP 137/74
[2023-12-28] MEDS: FASLODEX 250 MG IM ×2 (12:03→12:04)
== END 2023-12-31 08:52 | disposition home or self-care (01) ==
LOC: OID 11:28
PROVIDERS: ATTENDING PHYSICIAN Internal Medicine Hematology & Oncology; PRIMARYCARE PHYSICIAN Family Medicine
DX: Z51.11 Encounter for antineoplastic chemotherapy (principal); Z17.0 Estrogen receptor positive status [ER+]; C50.212 Malignant neoplasm of upper-inner quadrant of left female breast; C79.51 Secondary malignant neoplasm of bone
CPT/HCPCS: 36415; 80053; 85025; 86300; 96402; J9395

== ENCOUNTER → 2024-01-10 11:06 | Outpatient (REF) | payer OTHER, SELFPAY | LOC: PET 11:06 | PROVIDERS: ATTENDING PHYSICIAN Internal Medicine Hematology & Oncology | DX: C50.212 Malignant neoplasm of upper-inner quadrant of left female breast (principal) | CPT/HCPCS: 78815; A9552 ==

== ENCOUNTER 2024-01-25 11:37 | Outpatient (RCR) | payer OTHER, SELFPAY ==
[2024-01-22 13:39] LABS: % Basophils 0.2 % (0-2); % Eosinophils 0.7 % (0-6); % Immature Granulocytes 0.2 % (0-0.5); % Monocytes 5.1 % (1.7-9.3); % Neutrophils 76.8 % (42.2-75.2); Absolute Lymphocytes 0.8 10^3/uL (1.2-3.4); Absolute Monocytes 0.2 10^3/uL (0.1-0.6); Absolute Neutrophils 3.4 10^3/uL (1.4-6.5); Hematocrit 31.9 % (37.0-47.0); Hemoglobin 10.6 g/dL (12.0-16.0); Mean Corp Hgb Conc. 33.2 g/dL (33.0-37.0); Mean Corpuscular Hgb 33.5 pg (27.0-31.0); Mean Corpuscular Volume 100.9 fL (81.0-99.0); Mean Platelet Volume 9.4 fL (7.4-10.4); Platelet Count 174 10^3/uL (130-400); Red Blood Cell Count 3.16 10^6/uL (4.20-5.40); Red Cell Dist. Width 16.3 % (11.5-14.5); White Blood Cell Count 4.5 10^3/uL (4.8-10.8)
[2024-01-22 14:36] LABS: ALT (SGPT) < 10 U/L (0-35); AST (SGOT) 22 U/L (14-36); Albumin 4.2 g/dl (3.5-5.0); Alkaline Phosphatase 59 U/L (38-126); Blood Urea Nitrogen 10 mg/dl (7-17); Calcium 10.2 mg/dl (8.4-10.2); Carbon Dioxide 25 mmol/L (22-30); Chloride 105 mmol/L (98-107); Glucose 86 mg/dl (70-99); Potassium 3.9 mmol/L (3.5-5.1); Sodium 139 mmol/L (135-145); Total Bilirubin 0.6 mg/dl (0.2-1.3); Total Protein 7.1 g/dl (6.3-8.2); eGFR 52.47
[2024-01-25 03:36] LABS: CA 27-29 43.3 U/mL (<=39.0)
[2024-01-25 11:50] VITALS: BP 122/87
[2024-01-25] MEDS: FASLODEX 250 MG IM ×2 (12:30)
== END 2024-02-13 23:59 | disposition home or self-care (01) ==
LOC: OID 11:37
PROVIDERS: ATTENDING PHYSICIAN Internal Medicine Hematology & Oncology; PRIMARYCARE PHYSICIAN Family Medicine
DX: C50.212 Malignant neoplasm of upper-inner quadrant of left female breast (principal); Z51.11 Encounter for antineoplastic chemotherapy (principal); C79.51 Secondary malignant neoplasm of bone; Z17.0 Estrogen receptor positive status [ER+]
CPT/HCPCS: 36415; 80053; 85025; 86300; 96402; J9395

== ENCOUNTER 2024-02-01 07:02 | Outpatient (REF) | payer OTHER, SELFPAY ==
[2024-02-01] VITALS (11 sets, daily range): BP systolic 60–115; BP diastolic 53–89
[2024-02-01 07:21] LABS: Hematocrit 29.4 % (37.0-47.0); Hemoglobin 10.3 g/dL (12.0-16.0); Mean Corpuscular Hgb 34.3 pg (27.0-31.0); Platelet Count 154 10^3/uL (130-400); Red Cell Dist. Width 15.3 % (11.5-14.5); White Blood Cell Count 4.1 10^3/uL (4.8-10.8)
[2024-02-01 08:11] LABS: INR 1.13; PT 14.3 Sec (11.4-14.6)
== END 2024-02-01 12:35 | disposition home or self-care (01) ==
LOC: RADI 07:02
PROVIDERS: ATTENDING PHYSICIAN Internal Medicine Hematology & Oncology
DX: C34.31 Malignant neoplasm of lower lobe, right bronchus or lung (principal); C50.212 Malignant neoplasm of upper-inner quadrant of left female breast
CPT/HCPCS: 88307; 32408; 36415; 71045; 81459; 85027; 85610; 88333; 88341; 88342; 99152; 99153; C2613

== ENCOUNTER 2024-02-22 11:36 | Outpatient (RCR) | payer OTHER, SELFPAY ==
[2024-02-19 10:10] LABS: % Basophils 0.5 % (0-2); % Eosinophils 1.7 % (0-6); % Immature Granulocytes 0.5 % (0-0.5); % Lymphocytes 23.1 % (20.5-51.1); % Neutrophils 68.2 % (42.2-75.2); Absolute Eosinophils 0.1 10^3/uL (0-0.7); Absolute Monocytes 0.3 10^3/uL (0.1-0.6); Absolute Neutrophils 2.8 10^3/uL (1.4-6.5); Hematocrit 28.8 % (37.0-47.0); Hemoglobin 9.8 g/dL (12.0-16.0); Mean Corpuscular Hgb 34.6 pg (27.0-31.0); Mean Corpuscular Volume 101.8 fL (81.0-99.0); Mean Platelet Volume 9.4 fL (7.4-10.4); Platelet Count 162 10^3/uL (130-400); Red Blood Cell Count 2.83 10^6/uL (4.20-5.40); Red Cell Dist. Width 14.8 % (11.5-14.5); White Blood Cell Count 4.2 10^3/uL (4.8-10.8)
[2024-02-19 11:40] LABS: ALT (SGPT) < 10 U/L (0-35); AST (SGOT) 20 U/L (14-36); Albumin 3.8 g/dl (3.5-5.0); Alkaline Phosphatase 62 U/L (38-126); Blood Urea Nitrogen 12 mg/dl (7-17); Calcium 9.3 mg/dl (8.4-10.2); Carbon Dioxide 23 mmol/L (22-30); Chloride 107 mmol/L (98-107); Glucose 102 mg/dl (70-99); Potassium 3.9 mmol/L (3.5-5.1); Sodium 137 mmol/L (135-145); Total Bilirubin 0.5 mg/dl (0.2-1.3); Total Protein 6.7 g/dl (6.3-8.2); eGFR 58.24
[2024-02-21 02:17] LABS: CA 27-29 40.7 U/mL (<=39.0)
[2024-02-22 11:57] VITALS: BP 128/62
[2024-02-22] MEDS: FASLODEX 250 MG IM ×2 (12:52)
== END 2024-02-26 14:03 | disposition home or self-care (01) ==
LOC: OID 11:36
PROVIDERS: ATTENDING PHYSICIAN Internal Medicine Hematology & Oncology; PRIMARYCARE PHYSICIAN Family Medicine
DX: Z51.11 Encounter for antineoplastic chemotherapy (principal); C50.212 Malignant neoplasm of upper-inner quadrant of left female breast; C79.51 Secondary malignant neoplasm of bone; Z17.0 Estrogen receptor positive status [ER+]
CPT/HCPCS: 36415; 80053; 85025; 86300; 96372; 96402; J9395

== ENCOUNTER → 2024-02-25 12:46 | Outpatient (REF) | payer OTHER, SELFPAY | LOC: RCS 12:46 | PROVIDERS: ATTENDING PHYSICIAN Internal Medicine Cardiovascular Disease; REFERRING PHYSICIAN Surgery | DX: R06.09 Other forms of dyspnea (principal); R06.02 Shortness of breath | CPT/HCPCS: 93306; Q9950 ==

== ENCOUNTER → 2024-02-29 10:10 | Outpatient (REF) | payer OTHER, SELFPAY | LOC: RADI 10:10 | PROVIDERS: ATTENDING PHYSICIAN Radiology Radiation Oncology | DX: J90 Pleural effusion, not elsewhere classified (principal); Z53.8 Procedure and treatment not carried out for other reasons | CPT/HCPCS: 76604 ==

== ENCOUNTER 2024-03-21 11:36 | Outpatient (RCR) | payer OTHER, SELFPAY ==
[2024-03-18 10:13] LABS: % Basophils 0.5 % (0-2); % Eosinophils 1.7 % (0-6); % Immature Granulocytes 0.2 % (0-0.5); % Lymphocytes 19.5 % (20.5-51.1); % Monocytes 4.6 % (1.7-9.3); % Neutrophils 73.5 % (42.2-75.2); Absolute Eosinophils 0.1 10^3/uL (0-0.7); Absolute Lymphocytes 0.8 10^3/uL (1.2-3.4); Absolute Monocytes 0.2 10^3/uL (0.1-0.6); Absolute Neutrophils 3.1 10^3/uL (1.4-6.5); Hematocrit 28.9 % (37.0-47.0); Hemoglobin 9.6 g/dL (12.0-16.0); Mean Corp Hgb Conc. 33.2 g/dL (33.0-37.0); Mean Corpuscular Hgb 35.2 pg (27.0-31.0); Mean Corpuscular Volume 105.9 fL (81.0-99.0); Mean Platelet Volume 9.4 fL (7.4-10.4); Platelet Count 168 10^3/uL (130-400); Red Blood Cell Count 2.73 10^6/uL (4.20-5.40); Red Cell Dist. Width 14.3 % (11.5-14.5); White Blood Cell Count 4.2 10^3/uL (4.8-10.8)
[2024-03-18 11:08] LABS: ALT (SGPT) < 10 U/L (0-35); AST (SGOT) 20 U/L (14-36); Albumin 3.9 g/dl (3.5-5.0); Alkaline Phosphatase 62 U/L (38-126); Blood Urea Nitrogen 8 mg/dl (7-17); Calcium 9.3 mg/dl (8.4-10.2); Carbon Dioxide 27 mmol/L (22-30); Chloride 104 mmol/L (98-107); Glucose 88 mg/dl (70-99); Potassium 3.6 mmol/L (3.5-5.1); Sodium 141 mmol/L (135-145); Total Bilirubin 0.6 mg/dl (0.2-1.3); Total Protein 6.8 g/dl (6.3-8.2); eGFR > 60.00
[2024-03-19 14:13] LABS: CA 27-29 37.2 U/mL (<=39.0)
[2024-03-21 11:52] VITALS: BP 119/76
[2024-03-21] MEDS: FASLODEX 250 MG IM ×2 (11:59→12:00)
== END 2024-03-24 08:18 | disposition home or self-care (01) ==
LOC: OID 11:36
PROVIDERS: ATTENDING PHYSICIAN Internal Medicine Hematology & Oncology; PRIMARYCARE PHYSICIAN Family Medicine
DX: C50.212 Malignant neoplasm of upper-inner quadrant of left female breast (principal); C79.51 Secondary malignant neoplasm of bone; Z17.0 Estrogen receptor positive status [ER+]; Z51.11 Encounter for antineoplastic chemotherapy
CPT/HCPCS: 36415; 80053; 85025; 86300; 96402; J9395

== ENCOUNTER → 2024-05-05 11:32 | Outpatient (REF) | payer OTHER, SELFPAY | LOC: HWRAD 11:32 | PROVIDERS: ATTENDING PHYSICIAN Radiology Radiation Oncology | DX: C34.31 Malignant neoplasm of lower lobe, right bronchus or lung (principal) | CPT/HCPCS: 71250 ==

== ENCOUNTER 2024-05-13 13:00 | Outpatient (RCR) | payer OTHER, SELFPAY ==
[2024-04-15 14:36] LABS: % Basophils 0.5 % (0-2); % Eosinophils 1.6 % (0-6); % Immature Granulocytes 0.7 % (0-0.5); % Lymphocytes 15.5 % (20.5-51.1); % Monocytes 5.9 % (1.7-9.3); % Neutrophils 75.8 % (42.2-75.2); Absolute Eosinophils 0.1 10^3/uL (0-0.7); Absolute Lymphocytes 0.7 10^3/uL (1.2-3.4); Absolute Monocytes 0.3 10^3/uL (0.1-0.6); Absolute Neutrophils 3.2 10^3/uL (1.4-6.5); Hematocrit 29.7 % (37.0-47.0); Hemoglobin 10.4 g/dL (12.0-16.0); Mean Corpuscular Hgb 35.5 pg (27.0-31.0); Mean Corpuscular Volume 101.4 fL (81.0-99.0); Mean Platelet Volume 10.3 fL (7.4-10.4); Nucleated Red Blood Cells % 0 %; Platelet Count 184 10^3/uL (130-400); Red Blood Cell Count 2.93 10^6/uL (4.20-5.40); Red Cell Dist. Width 13.8 % (11.5-14.5); White Blood Cell Count 4.3 10^3/uL (4.8-10.8)
[2024-04-15 14:52] LABS: ALT (SGPT) 12 U/L (0-35); AST (SGOT) 23 U/L (14-36); Albumin 4.2 g/dl (3.5-5.0); Alkaline Phosphatase 66 U/L (38-126); Blood Urea Nitrogen 11 mg/dl (7-17); Calcium 9.6 mg/dl (8.4-10.2); Carbon Dioxide 23 mmol/L (22-30); Chloride 104 mmol/L (98-107); Glucose 93 mg/dl (70-99); Potassium 4.1 mmol/L (3.5-5.1); Sodium 137 mmol/L (135-145); Total Bilirubin 0.5 mg/dl (0.2-1.3); Total Protein 7.1 g/dl (6.3-8.2); eGFR 58.24
[2024-04-18 05:03] LABS: CA 27-29 49.2 U/mL (<=39.0)
[2024-04-18 12:01] VITALS: BP 112/81
[2024-04-18] MEDS: FASLODEX 250 MG IM ×2 (12:21)
[2024-05-13 13:10] LABS: % Basophils 0.4 % (0-2); % Eosinophils 1.8 % (0-6); % Immature Granulocytes 0.4 % (0-0.5); % Lymphocytes 21.2 % (20.5-51.1); % Monocytes 8.1 % (1.7-9.3); % Neutrophils 68.1 % (42.2-75.2); Absolute Eosinophils 0.1 10^3/uL (0-0.7); Absolute Lymphocytes 0.6 10^3/uL (1.2-3.4); Absolute Monocytes 0.2 10^3/uL (0.1-0.6); Absolute Neutrophils 1.9 10^3/uL (1.4-6.5); Hematocrit 32.3 % (37.0-47.0); Hemoglobin 10.9 g/dL (12.0-16.0); Mean Corp Hgb Conc. 33.7 g/dL (33.0-37.0); Mean Corpuscular Hgb 34.7 pg (27.0-31.0); Mean Corpuscular Volume 102.9 fL (81.0-99.0); Mean Platelet Volume 9.7 fL (7.4-10.4); Platelet Count 129 10^3/uL (130-400); Red Blood Cell Count 3.14 10^6/uL (4.20-5.40); Red Cell Dist. Width 14.4 % (11.5-14.5); White Blood Cell Count 2.8 10^3/uL (4.8-10.8)
[2024-05-13 14:34] LABS: ALT (SGPT) 12 U/L (0-35); AST (SGOT) 23 U/L (14-36); Albumin 4.2 g/dl (3.5-5.0); Alkaline Phosphatase 56 U/L (38-126); Blood Urea Nitrogen 9 mg/dl (7-17); Calcium 9.8 mg/dl (8.4-10.2); Carbon Dioxide 24 mmol/L (22-30); Chloride 102 mmol/L (98-107); Potassium 3.8 mmol/L (3.5-5.1); Sodium 137 mmol/L (135-145); Total Protein 7.4 g/dl (6.3-8.2); eGFR 58.24
[2024-05-13 14:44] LABS: Glucose 110 mg/dl (70-99); Total Bilirubin 0.4 mg/dl (0.2-1.3)
== END 2024-05-13 14:32 | disposition home or self-care (01) ==
LOC: OID 13:00
PROVIDERS: ATTENDING PHYSICIAN Internal Medicine Hematology & Oncology; PRIMARYCARE PHYSICIAN Family Medicine
DX: C50.212 Malignant neoplasm of upper-inner quadrant of left female breast (principal); C79.51 Secondary malignant neoplasm of bone; Z17.0 Estrogen receptor positive status [ER+]; Z51.11 Encounter for antineoplastic chemotherapy
CPT/HCPCS: 36415; 80053; 85025; 86300; 96402; J9395

== ENCOUNTER 2024-06-13 13:10 | Outpatient (RCR) | payer OTHER, SELFPAY ==
[2024-05-16 12:04] VITALS: BP 117/60
[2024-05-16] MEDS: FASLODEX 250 MG IM ×2 (12:23)
[2024-06-10 14:16] LABS: % Basophils 0.3 % (0-2); % Eosinophils 1.5 % (0-6); % Immature Granulocytes 0.3 % (0-0.5); % Lymphocytes 17.9 % (20.5-51.1); % Monocytes 7.4 % (1.7-9.3); % Neutrophils 72.6 % (42.2-75.2); Absolute Eosinophils 0.1 10^3/uL (0-0.7); Absolute Lymphocytes 0.7 10^3/uL (1.2-3.4); Absolute Monocytes 0.3 10^3/uL (0.1-0.6); Absolute Neutrophils 2.8 10^3/uL (1.4-6.5); Hematocrit 30.9 % (37.0-47.0); Hemoglobin 10.2 g/dL (12.0-16.0); Mean Corpuscular Hgb 34.5 pg (27.0-31.0); Mean Corpuscular Volume 104.4 fL (81.0-99.0); Mean Platelet Volume 9.5 fL (7.4-10.4); Platelet Count 148 10^3/uL (130-400); Red Blood Cell Count 2.96 10^6/uL (4.20-5.40); Red Cell Dist. Width 14.8 % (11.5-14.5); White Blood Cell Count 3.9 10^3/uL (4.8-10.8)
[2024-06-10 15:43] LABS: ALT (SGPT) 10 U/L (0-35); AST (SGOT) 21 U/L (14-36); Albumin 4.3 g/dl (3.5-5.0); Alkaline Phosphatase 56 U/L (38-126); Blood Urea Nitrogen 11 mg/dl (7-17); Calcium 9.3 mg/dl (8.4-10.2); Carbon Dioxide 25 mmol/L (22-30); Chloride 105 mmol/L (98-107); Glucose 87 mg/dl (70-99); Potassium 4.1 mmol/L (3.5-5.1); Sodium 141 mmol/L (135-145); Total Bilirubin 0.5 mg/dl (0.2-1.3); Total Protein 7.4 g/dl (6.3-8.2); eGFR 52.47
[2024-06-13 00:22] LABS: CA 27-29 44.4 U/mL (<=39.0)
[2024-06-13 13:16] VITALS: BP 142/79
[2024-06-13] MEDS: FASLODEX 250 MG IM ×2 (14:01)
== END 2024-06-14 23:59 | disposition home or self-care (01) ==
LOC: OID 13:10
PROVIDERS: ATTENDING PHYSICIAN Internal Medicine Hematology & Oncology; PRIMARYCARE PHYSICIAN Family Medicine
DX: C50.212 Malignant neoplasm of upper-inner quadrant of left female breast (principal); C79.51 Secondary malignant neoplasm of bone; Z17.0 Estrogen receptor positive status [ER+]; Z51.11 Encounter for antineoplastic chemotherapy
CPT/HCPCS: 36415; 80053; 85025; 86300; 96402; J9395

== ENCOUNTER 2024-07-11 11:25 | Outpatient (RCR) | payer OTHER, SELFPAY ==
[2024-07-08 09:45] LABS: % Basophils 0.5 % (0-2); % Eosinophils 1.5 % (0-6); % Immature Granulocytes 0.3 % (0-0.5); % Lymphocytes 18.6 % (20.5-51.1); % Monocytes 6.7 % (1.7-9.3); % Neutrophils 72.4 % (42.2-75.2); Absolute Eosinophils 0.1 10^3/uL (0-0.7); Absolute Lymphocytes 0.7 10^3/uL (1.2-3.4); Absolute Monocytes 0.3 10^3/uL (0.1-0.6); Absolute Neutrophils 2.8 10^3/uL (1.4-6.5); Hematocrit 29.1 % (37.0-47.0); Hemoglobin 9.7 g/dL (12.0-16.0); Mean Corp Hgb Conc. 33.3 g/dL (33.0-37.0); Mean Corpuscular Hgb 35.7 pg (27.0-31.0); Mean Platelet Volume 9.5 fL (7.4-10.4); Platelet Count 142 10^3/uL (130-400); Red Blood Cell Count 2.72 10^6/uL (4.20-5.40); Red Cell Dist. Width 14.7 % (11.5-14.5); White Blood Cell Count 3.9 10^3/uL (4.8-10.8)
[2024-07-08 11:14] LABS: ALT (SGPT) < 10 U/L (0-35); AST (SGOT) 19 U/L (14-36); Albumin 3.9 g/dl (3.5-5.0); Alkaline Phosphatase 55 U/L (38-126); Blood Urea Nitrogen 8 mg/dl (7-17); Calcium 9.7 mg/dl (8.4-10.2); Carbon Dioxide 27 mmol/L (22-30); Chloride 103 mmol/L (98-107); Glucose 62 mg/dl (70-99); Sodium 140 mmol/L (135-145); Total Bilirubin 0.3 mg/dl (0.2-1.3); Total Protein 6.9 g/dl (6.3-8.2); eGFR > 60.00
[2024-07-08 11:20] LABS: Potassium 3.7 mmol/L (3.5-5.1)
[2024-07-11 00:21] LABS: CA 27-29 53.8 U/mL (<=39.0)
[2024-07-11 11:40] VITALS: BP 128/89
[2024-07-11] MEDS: FASLODEX 250 MG IM ×2 (11:55)
== END 2024-07-14 15:52 | disposition home or self-care (01) ==
LOC: OID 11:25
PROVIDERS: ATTENDING PHYSICIAN Internal Medicine Hematology & Oncology; PRIMARYCARE PHYSICIAN Family Medicine
DX: C50.212 Malignant neoplasm of upper-inner quadrant of left female breast (principal); C79.51 Secondary malignant neoplasm of bone; Z17.0 Estrogen receptor positive status [ER+]; Z51.11 Encounter for antineoplastic chemotherapy
CPT/HCPCS: 36415; 80053; 85025; 86300; 96402; J9395

== ENCOUNTER → 2024-07-30 09:31 | Outpatient (REF) | payer OTHER, SELFPAY | LOC: PET 09:31 | PROVIDERS: ATTENDING PHYSICIAN Internal Medicine Hematology & Oncology | DX: C50.212 Malignant neoplasm of upper-inner quadrant of left female breast (principal) | CPT/HCPCS: 78815; A9552 ==

== ENCOUNTER 2024-08-08 11:26 | Outpatient (RCR) | payer OTHER, SELFPAY ==
[2024-08-05 11:04] LABS: % Basophils 0.5 % (0-2); % Immature Granulocytes 0.2 % (0-0.5); % Lymphocytes 16.3 % (20.5-51.1); % Monocytes 5.2 % (1.7-9.3); % Neutrophils 75.8 % (42.2-75.2); Absolute Eosinophils 0.1 10^3/uL (0-0.7); Absolute Lymphocytes 0.7 10^3/uL (1.2-3.4); Absolute Monocytes 0.2 10^3/uL (0.1-0.6); Absolute Neutrophils 3.4 10^3/uL (1.4-6.5); Hematocrit 29.5 % (37.0-47.0); Mean Corp Hgb Conc. 33.9 g/dL (33.0-37.0); Mean Corpuscular Hgb 35.3 pg (27.0-31.0); Mean Corpuscular Volume 104.2 fL (81.0-99.0); Mean Platelet Volume 9.3 fL (7.4-10.4); Platelet Count 160 10^3/uL (130-400); Red Blood Cell Count 2.83 10^6/uL (4.20-5.40); Red Cell Dist. Width 13.6 % (11.5-14.5); White Blood Cell Count 4.4 10^3/uL (4.8-10.8)
[2024-08-05 11:43] LABS: ALT (SGPT) < 10 U/L (0-35); AST (SGOT) 18 U/L (14-36); Albumin 3.9 g/dl (3.5-5.0); Alkaline Phosphatase 59 U/L (38-126); Blood Urea Nitrogen 11 mg/dl (7-17); Calcium 8.8 mg/dl (8.4-10.2); Carbon Dioxide 27 mmol/L (22-30); Chloride 104 mmol/L (98-107); Glucose 91 mg/dl (70-99); Potassium 3.5 mmol/L (3.5-5.1); Sodium 139 mmol/L (135-145); Total Bilirubin 0.4 mg/dl (0.2-1.3); Total Protein 6.8 g/dl (6.3-8.2); eGFR > 60.00
[2024-08-06 17:05] LABS: CA 27-29 58.2 U/mL (<=39.0)
[2024-08-08 11:48] VITALS: BP 150/90
[2024-08-08] MEDS: FASLODEX 250 MG IM ×2 (12:01→12:02)
== END 2024-08-11 09:29 | disposition home or self-care (01) ==
LOC: OID 11:26
PROVIDERS: ATTENDING PHYSICIAN Internal Medicine Hematology & Oncology; PRIMARYCARE PHYSICIAN Family Medicine
DX: C50.212 Malignant neoplasm of upper-inner quadrant of left female breast (principal); C79.51 Secondary malignant neoplasm of bone; Z17.0 Estrogen receptor positive status [ER+]; Z51.11 Encounter for antineoplastic chemotherapy
CPT/HCPCS: 36415; 80053; 85025; 86300; 96402; J9395

== ENCOUNTER 2024-09-05 11:31 | Outpatient (RCR) | payer OTHER, SELFPAY ==
[2024-09-02 11:03] LABS: % Basophils 0.5 % (0-2); % Eosinophils 1.4 % (0-6); % Immature Granulocytes 0.2 % (0-0.5); % Lymphocytes 16.9 % (20.5-51.1); % Monocytes 6.3 % (1.7-9.3); % Neutrophils 74.7 % (42.2-75.2); Absolute Eosinophils 0.1 10^3/uL (0-0.7); Absolute Lymphocytes 0.7 10^3/uL (1.2-3.4); Absolute Monocytes 0.3 10^3/uL (0.1-0.6); Absolute Neutrophils 3.2 10^3/uL (1.4-6.5); Hematocrit 29.9 % (37.0-47.0); Hemoglobin 10.1 g/dL (12.0-16.0); Mean Corp Hgb Conc. 33.8 g/dL (33.0-37.0); Mean Corpuscular Hgb 35.3 pg (27.0-31.0); Mean Corpuscular Volume 104.5 fL (81.0-99.0); Mean Platelet Volume 9.9 fL (7.4-10.4); Platelet Count 155 10^3/uL (130-400); Red Blood Cell Count 2.86 10^6/uL (4.20-5.40); White Blood Cell Count 4.3 10^3/uL (4.8-10.8)
[2024-09-02 12:53] LABS: ALT (SGPT) < 10 U/L (0-35); AST (SGOT) 18 U/L (14-36); Albumin 3.7 g/dl (3.5-5.0); Alkaline Phosphatase 59 U/L (38-126); Blood Urea Nitrogen 10 mg/dl (7-17); Calcium 9.2 mg/dl (8.4-10.2); Carbon Dioxide 25 mmol/L (22-30); Chloride 104 mmol/L (98-107); Glucose 119 mg/dl (70-99); Potassium 3.6 mmol/L (3.5-5.1); Sodium 137 mmol/L (135-145); Total Bilirubin 0.7 mg/dl (0.2-1.3); Total Protein 6.7 g/dl (6.3-8.2); eGFR > 60.00
[2024-09-03 14:15] LABS: CA 27-29 49.6 U/mL (<=39.0)
[2024-09-05 11:40] VITALS: BP 125/68
[2024-09-05] MEDS: FASLODEX 250 MG IM ×2 (11:54→11:55)
== END 2024-09-05 14:46 | disposition home or self-care (01) ==
LOC: OID 11:31
PROVIDERS: ATTENDING PHYSICIAN Internal Medicine Hematology & Oncology; PRIMARYCARE PHYSICIAN Family Medicine
DX: C50.212 Malignant neoplasm of upper-inner quadrant of left female breast (principal); C79.51 Secondary malignant neoplasm of bone; Z17.0 Estrogen receptor positive status [ER+]; Z51.11 Encounter for antineoplastic chemotherapy
CPT/HCPCS: 36415; 80053; 85025; 86300; 96402; J9395

== ENCOUNTER 2024-10-10 13:47 | Outpatient (RCR) | payer OTHER, SELFPAY ==
[2024-10-07 10:41] LABS: % Basophils 0.3 % (0-2); % Eosinophils 1.9 % (0-6); % Immature Granulocytes 0.3 % (0-0.5); % Lymphocytes 27.8 % (20.5-51.1); % Monocytes 5.3 % (1.7-9.3); % Neutrophils 64.4 % (42.2-75.2); Absolute Eosinophils 0.1 10^3/uL (0-0.7); Absolute Lymphocytes 0.9 10^3/uL (1.2-3.4); Absolute Monocytes 0.2 10^3/uL (0.1-0.6); Absolute Neutrophils 2.1 10^3/uL (1.4-6.5); Hematocrit 32.8 % (37.0-47.0); Hemoglobin 11.2 g/dL (12.0-16.0); Mean Corp Hgb Conc. 34.1 g/dL (33.0-37.0); Mean Corpuscular Hgb 34.4 pg (27.0-31.0); Mean Corpuscular Volume 100.6 fL (81.0-99.0); Mean Platelet Volume 10.1 fL (7.4-10.4); Platelet Count 134 10^3/uL (130-400); Red Blood Cell Count 3.26 10^6/uL (4.20-5.40); Red Cell Dist. Width 12.5 % (11.5-14.5); White Blood Cell Count 3.2 10^3/uL (4.8-10.8)
[2024-10-07 12:34] LABS: ALT (SGPT) 10 U/L (0-35); AST (SGOT) 21 U/L (14-36); Albumin 4.2 g/dl (3.5-5.0); Alkaline Phosphatase 60 U/L (38-126); Blood Urea Nitrogen 10 mg/dl (7-17); Calcium 9.4 mg/dl (8.4-10.2); Carbon Dioxide 26 mmol/L (22-30); Chloride 106 mmol/L (98-107); Glucose 81 mg/dl (70-99); Potassium 3.5 mmol/L (3.5-5.1); Sodium 143 mmol/L (135-145); Total Bilirubin 0.6 mg/dl (0.2-1.3); Total Protein 7.3 g/dl (6.3-8.2); eGFR > 60.00
[2024-10-10 13:50] VITALS: BP 142/79
[2024-10-10] MEDS: FASLODEX 250 MG IM ×2 (14:11→14:12)
== END 2024-10-13 08:25 | disposition home or self-care (01) ==
LOC: OID 13:47
PROVIDERS: ATTENDING PHYSICIAN Internal Medicine Hematology & Oncology; PRIMARYCARE PHYSICIAN Family Medicine
DX: C50.212 Malignant neoplasm of upper-inner quadrant of left female breast (principal); C79.51 Secondary malignant neoplasm of bone; C78.02 Secondary malignant neoplasm of left lung; Z17.0 Estrogen receptor positive status [ER+]; Z51.11 Encounter for antineoplastic chemotherapy
CPT/HCPCS: 36415; 80053; 85025; 86300; 96402; J9395

== ENCOUNTER 2024-11-07 11:25 | Outpatient (RCR) | payer OTHER, SELFPAY ==
[2024-11-05 10:48] LABS: % Basophils 0.6 % (0-2); % Eosinophils 1.6 % (0-6); % Immature Granulocytes 0.2 % (0-0.5); % Monocytes 9.7 % (1.7-9.3); % Neutrophils 72.9 % (42.2-75.2); Absolute Eosinophils 0.1 10^3/uL (0-0.7); Absolute Lymphocytes 0.7 10^3/uL (1.2-3.4); Absolute Monocytes 0.5 10^3/uL (0.1-0.6); Absolute Neutrophils 3.5 10^3/uL (1.4-6.5); Hematocrit 30.5 % (37.0-47.0); Hemoglobin 10.3 g/dL (12.0-16.0); Mean Corp Hgb Conc. 33.8 g/dL (33.0-37.0); Mean Corpuscular Hgb 34.3 pg (27.0-31.0); Mean Corpuscular Volume 101.7 fL (81.0-99.0); Mean Platelet Volume 9.3 fL (7.4-10.4); Platelet Count 170 10^3/uL (130-400); Red Cell Dist. Width 13.6 % (11.5-14.5); White Blood Cell Count 4.9 10^3/uL (4.8-10.8)
[2024-11-05 11:31] LABS: ALT (SGPT) < 10 U/L (0-35); AST (SGOT) 17 U/L (14-36); Albumin 4.4 g/dl (3.5-5.0); Alkaline Phosphatase 57 U/L (38-126); Blood Urea Nitrogen 16 mg/dl (7-17); Carbon Dioxide 25 mmol/L (22-30); Chloride 103 mmol/L (98-107); Glucose 93 mg/dl (70-99); Potassium 3.9 mmol/L (3.5-5.1); Sodium 140 mmol/L (135-145); Total Bilirubin 0.5 mg/dl (0.2-1.3); Total Protein 7.3 g/dl (6.3-8.2); eGFR 58.24
[2024-11-06 14:19] LABS: CA 27-29 55.1 U/mL (<=39.0)
[2024-11-07 11:44] VITALS: BP 133/81
[2024-11-07] MEDS: FASLODEX 250 MG IM ×2 (11:57)
== END 2024-11-10 10:15 | disposition home or self-care (01) ==
LOC: OID 11:25
PROVIDERS: ATTENDING PHYSICIAN Internal Medicine Hematology & Oncology; PRIMARYCARE PHYSICIAN Family Medicine
DX: C50.212 Malignant neoplasm of upper-inner quadrant of left female breast (principal); C79.51 Secondary malignant neoplasm of bone; C78.02 Secondary malignant neoplasm of left lung; Z17.0 Estrogen receptor positive status [ER+]; Z51.11 Encounter for antineoplastic chemotherapy
CPT/HCPCS: 36415; 80053; 85025; 86300; 96401; J9395

== ENCOUNTER 2024-12-05 11:29 | Outpatient (RCR) | payer OTHER, SELFPAY ==
[2024-12-02 13:07] LABS: % Basophils 0.8 % (0-2); % Eosinophils 1.9 % (0-6); % Immature Granulocytes 0.3 % (0-0.5); % Lymphocytes 21.3 % (20.5-51.1); % Monocytes 6.1 % (1.7-9.3); % Neutrophils 69.6 % (42.2-75.2); Absolute Eosinophils 0.1 10^3/uL (0-0.7); Absolute Lymphocytes 0.8 10^3/uL (1.2-3.4); Absolute Monocytes 0.2 10^3/uL (0.1-0.6); Absolute Neutrophils 2.6 10^3/uL (1.4-6.5); Hematocrit 30.2 % (37.0-47.0); Hemoglobin 10.1 g/dL (12.0-16.0); Mean Corp Hgb Conc. 33.4 g/dL (33.0-37.0); Mean Corpuscular Hgb 34.1 pg (27.0-31.0); Mean Platelet Volume 9.3 fL (7.4-10.4); Platelet Count 172 10^3/uL (130-400); Red Blood Cell Count 2.96 10^6/uL (4.20-5.40); Red Cell Dist. Width 13.7 % (11.5-14.5); White Blood Cell Count 3.8 10^3/uL (4.8-10.8)
[2024-12-02 15:45] LABS: ALT (SGPT) < 10 U/L (0-35); AST (SGOT) 18 U/L (14-36); Albumin 4.1 g/dl (3.5-5.0); Alkaline Phosphatase 60 U/L (38-126); Blood Urea Nitrogen 8 mg/dl (7-17); Calcium 9.3 mg/dl (8.4-10.2); Carbon Dioxide 26 mmol/L (22-30); Chloride 110 mmol/L (98-107); Glucose 89 mg/dl (70-99); Potassium 3.7 mmol/L (3.5-5.1); Sodium 140 mmol/L (135-145); Total Bilirubin 0.6 mg/dl (0.2-1.3); Total Protein 7.1 g/dl (6.3-8.2); eGFR > 60.00
[2024-12-04 22:30] LABS: CA 27-29 68.7 U/mL (<=39.0)
[2024-12-05 11:49] VITALS: BP 135/91
[2024-12-05] MEDS: FASLODEX 250 MG IM ×2 (12:05→12:10)
== END 2024-12-09 10:52 | disposition home or self-care (01) ==
LOC: OID 11:29
PROVIDERS: ATTENDING PHYSICIAN Internal Medicine Hematology & Oncology; PRIMARYCARE PHYSICIAN Family Medicine
DX: C50.212 Malignant neoplasm of upper-inner quadrant of left female breast (principal); C79.51 Secondary malignant neoplasm of bone; C78.02 Secondary malignant neoplasm of left lung; Z17.0 Estrogen receptor positive status [ER+]; Z51.11 Encounter for antineoplastic chemotherapy
CPT/HCPCS: 36415; 80053; 85025; 86300; 96402; J9395

== ENCOUNTER → 2024-12-11 11:19 | Outpatient (REF) | payer OTHER, SELFPAY | LOC: HWRAD 11:19 | PROVIDERS: ATTENDING PHYSICIAN Radiology Radiation Oncology; REFERRING PHYSICIAN Internal Medicine Hematology & Oncology | DX: C34.31 Malignant neoplasm of lower lobe, right bronchus or lung (principal) | CPT/HCPCS: 71250 ==

== ENCOUNTER 2025-01-02 11:31 | Outpatient (RCR) | payer OTHER, SELFPAY ==
[2024-12-30 13:43] LABS: % Basophils 0.2 % (0-2); % Eosinophils 1.3 % (0-6); % Immature Granulocytes 0.4 % (0-0.5); % Lymphocytes 18.5 % (20.5-51.1); % Monocytes 7.1 % (1.7-9.3); % Neutrophils 72.5 % (42.2-75.2); Absolute Eosinophils 0.1 10^3/uL (0-0.7); Absolute Monocytes 0.4 10^3/uL (0.1-0.6); Absolute Neutrophils 3.8 10^3/uL (1.4-6.5); Hematocrit 31.4 % (37.0-47.0); Hemoglobin 10.4 g/dL (12.0-16.0); Mean Corp Hgb Conc. 33.1 g/dL (33.0-37.0); Mean Corpuscular Hgb 33.1 pg (27.0-31.0); Mean Platelet Volume 8.8 fL (7.4-10.4); Platelet Count 190 10^3/uL (130-400); Red Blood Cell Count 3.14 10^6/uL (4.20-5.40); Red Cell Dist. Width 13.4 % (11.5-14.5); White Blood Cell Count 5.2 10^3/uL (4.8-10.8)
[2024-12-30 15:00] LABS: ALT (SGPT) < 10 U/L (0-35); AST (SGOT) 18 U/L (14-36); Alkaline Phosphatase 61 U/L (38-126); Blood Urea Nitrogen 8 mg/dl (7-17); Calcium 9.6 mg/dl (8.4-10.2); Carbon Dioxide 26 mmol/L (22-30); Chloride 107 mmol/L (98-107); Glucose 95 mg/dl (70-99); Sodium 139 mmol/L (135-145); Total Bilirubin 0.6 mg/dl (0.2-1.3); Total Protein 7.2 g/dl (6.3-8.2); eGFR > 60.00
[2025-01-02 02:50] LABS: CA 27-29 52.2 U/mL (<=39.0)
[2025-01-02 11:45] VITALS: BP 114/67
[2025-01-02] MEDS: FASLODEX 250 MG IM ×2 (12:23→12:24)
[2025-01-02 12:45] VITALS: BP 143/94
[2025-01-02 13:00] VITALS: BP 98/50
[2025-01-02 13:15] VITALS: BP 111/78
--- NOTE | 2025-01-02 13:21 | PTCARENOTE ---
1300 pt verbalized feeling a tight sensation in chest and dizzy while received IM Faslodex. Vital signs remained stable. Pt verbalized feeling much better after eating a snack, sitting down, and having a glass of water. Observed patient after
episode for 30 minutes and discharged with stable vital signs.
== END 2025-01-05 10:41 | disposition home or self-care (01) ==
LOC: OID 11:31
PROVIDERS: ATTENDING PHYSICIAN Internal Medicine Hematology & Oncology; PRIMARYCARE PHYSICIAN Family Medicine
DX: C50.212 Malignant neoplasm of upper-inner quadrant of left female breast (principal); C79.51 Secondary malignant neoplasm of bone; C78.02 Secondary malignant neoplasm of left lung; Z17.0 Estrogen receptor positive status [ER+]; Z51.11 Encounter for antineoplastic chemotherapy
CPT/HCPCS: 36415; 80053; 85025; 86300; 96402; J9395

== ENCOUNTER 2025-01-30 11:28 | Outpatient (RCR) | payer OTHER, SELFPAY ==
[2025-01-27 13:47] LABS: Hematocrit 30.9 % (37.0-47.0); Hemoglobin 10.1 g/dL (12.0-16.0); Mean Corp Hgb Conc. 32.7 g/dL (33.0-37.0); Mean Corpuscular Volume 101.3 fL (81.0-99.0); Platelet Count 158 10^3/uL (130-400); Red Cell Dist. Width 13.5 % (11.5-14.5)
[2025-01-27 14:30] LABS: ALT (SGPT) < 10 U/L (0-35); AST (SGOT) 18 U/L (14-36); Albumin 4.0 g/dl (3.5-5.0); Alkaline Phosphatase 51 U/L (38-126); Blood Urea Nitrogen 15 mg/dl (7-17); Calcium 9.2 mg/dl (8.4-10.2); Carbon Dioxide 26 mmol/L (22-30); Chloride 109 mmol/L (98-107); Glucose 91 mg/dl (70-99); Potassium 4.1 mmol/L (3.5-5.1); Sodium 140 mmol/L (135-145); Total Protein 7.4 g/dl (6.3-8.2); eGFR 57.88
[2025-01-30 02:46] LABS: CA 27-29 50.4 U/mL (<=39.0)
[2025-01-30 11:38] VITALS: BP 132/76
[2025-01-30] MEDS: FASLODEX 250 MG IM ×2 (12:01)
== END 2025-02-02 11:47 | disposition home or self-care (01) ==
LOC: OID 11:28
PROVIDERS: ATTENDING PHYSICIAN Internal Medicine Hematology & Oncology; PRIMARYCARE PHYSICIAN Family Medicine
DX: C50.212 Malignant neoplasm of upper-inner quadrant of left female breast (principal); C79.51 Secondary malignant neoplasm of bone; C78.02 Secondary malignant neoplasm of left lung; Z17.0 Estrogen receptor positive status [ER+]; Z51.11 Encounter for antineoplastic chemotherapy
CPT/HCPCS: 36415; 80053; 85025; 86300; 96402; J9395

== ENCOUNTER 2025-03-03 13:03 | Outpatient (RCR) | payer OTHER, SELFPAY ==
[2025-02-24 15:42] LABS: Hematocrit 31.9 % (37.0-47.0); Hemoglobin 10.7 g/dL (12.0-16.0); Mean Corp Hgb Conc. 33.5 g/dL (33.0-37.0); Mean Corpuscular Volume 99.1 fL (81.0-99.0); Platelet Count 200 10^3/uL (130-400); Red Cell Dist. Width 14.5 % (11.5-14.5)
[2025-02-24 16:12] LABS: ALT (SGPT) < 10 U/L (0-35); AST (SGOT) 19 U/L (14-36); Albumin 4.2 g/dl (3.5-5.0); Alkaline Phosphatase 52 U/L (38-126); Blood Urea Nitrogen 9 mg/dl (7-17); Calcium 9.5 mg/dl (8.4-10.2); Carbon Dioxide 25 mmol/L (22-30); Chloride 106 mmol/L (98-107); Glucose 93 mg/dl (70-99); Potassium 4.5 mmol/L (3.5-5.1); Sodium 138 mmol/L (135-145); Total Protein 7.4 g/dl (6.3-8.2); eGFR > 60.00
[2025-02-27 02:26] LABS: CA 27-29 64.2 U/mL (<=39.0)
[2025-03-03 13:30] VITALS: BP 134/90
[2025-03-03] MEDS: FASLODEX 250 MG IM ×2 (13:55)
== END 2025-03-15 23:59 | disposition home or self-care (01) ==
LOC: OID 13:03
PROVIDERS: ATTENDING PHYSICIAN Internal Medicine Hematology & Oncology; PRIMARYCARE PHYSICIAN Family Medicine
DX: C50.212 Malignant neoplasm of upper-inner quadrant of left female breast; C79.51 Secondary malignant neoplasm of bone; C78.02 Secondary malignant neoplasm of left lung; Z17.0 Estrogen receptor positive status [ER+]; Z51.11 Encounter for antineoplastic chemotherapy
CPT/HCPCS: 36415; 80053; 85025; 86300; 96402; J9395

== ENCOUNTER 2025-04-03 15:01 | Outpatient (RCR) | payer OTHER, SELFPAY ==
[2025-03-27 06:18] LABS: CA 27-29 61.8 U/mL (<=39.0)
[2025-04-02 13:32] LABS: Hematocrit 31.0 % (37.0-47.0); Hemoglobin 10.5 g/dL (12.0-16.0); Mean Corp Hgb Conc. 33.9 g/dL (33.0-37.0); Mean Corpuscular Volume 99.0 fL (81.0-99.0); Platelet Count 255 10^3/uL (130-400); Red Cell Dist. Width 15.1 % (11.5-14.5)
[2025-04-02 14:37] LABS: ALT (SGPT) 21 U/L (0-35); AST (SGOT) 26 U/L (14-36); Albumin 4.1 g/dl (3.5-5.0); Alkaline Phosphatase 80 U/L (38-126); Blood Urea Nitrogen 6 mg/dl (7-17); Calcium 9.6 mg/dl (8.4-10.2); Carbon Dioxide 25 mmol/L (22-30); Chloride 104 mmol/L (98-107); Glucose 122 mg/dl (70-99); Potassium 4.0 mmol/L (3.5-5.1); Sodium 137 mmol/L (135-145); Total Protein 7.4 g/dl (6.3-8.2); eGFR > 60.00
[2025-04-03 15:16] VITALS: BP 127/91
[2025-04-03] MEDS: FASLODEX 250 MG IM ×2 (15:34)
== END 2025-04-06 08:53 | disposition home or self-care (01) ==
LOC: OID 15:01
PROVIDERS: ATTENDING PHYSICIAN Internal Medicine Hematology & Oncology; PRIMARYCARE PHYSICIAN Family Medicine
DX: C50.212 Malignant neoplasm of upper-inner quadrant of left female breast (principal); C78.02 Secondary malignant neoplasm of left lung; C79.51 Secondary malignant neoplasm of bone; Z17.0 Estrogen receptor positive status [ER+]; Z51.11 Encounter for antineoplastic chemotherapy
CPT/HCPCS: 36415; 80053; 85025; 86300; 96402; J9395

== ENCOUNTER → 2025-04-29 12:44 | Outpatient (REF) | payer OTHER, SELFPAY | LOC: RAD 12:44 | PROVIDERS: ATTENDING PHYSICIAN Radiology Radiation Oncology; REFERRING PHYSICIAN Internal Medicine Hematology & Oncology | DX: C34.31 Malignant neoplasm of lower lobe, right bronchus or lung (principal) | CPT/HCPCS: 71250 ==

== ENCOUNTER 2025-04-30 13:57 | Outpatient (RCR) | payer OTHER, SELFPAY ==
[2025-04-28 11:32] LABS: Hematocrit 31.1 % (37.0-47.0); Hemoglobin 10.4 g/dL (12.0-16.0); Mean Corp Hgb Conc. 33.4 g/dL (33.0-37.0); Mean Corpuscular Volume 98.4 fL (81.0-99.0); Platelet Count 185 10^3/uL (130-400); Red Cell Dist. Width 13.9 % (11.5-14.5)
[2025-04-28 12:02] LABS: ALT (SGPT) 10 U/L (0-35); AST (SGOT) 19 U/L (14-36); Albumin 4.0 g/dl (3.5-5.0); Alkaline Phosphatase 63 U/L (38-126); Blood Urea Nitrogen 4 mg/dl (7-17); Calcium 9.3 mg/dl (8.4-10.2); Carbon Dioxide 26 mmol/L (22-30); Chloride 107 mmol/L (98-107); Glucose 90 mg/dl (70-99); Potassium 3.6 mmol/L (3.5-5.1); Sodium 139 mmol/L (135-145); Total Protein 7.0 g/dl (6.3-8.2); eGFR > 60.00
[2025-04-30] MEDS: FASLODEX 250 MG IM ×2 (14:31→14:33)
[2025-04-30 14:41] VITALS: BP 127/82
[2025-05-01 04:22] LABS: CA 27-29 48.7 U/mL (<=39.0)
== END 2025-05-01 09:35 | disposition home or self-care (01) ==
LOC: OID 13:57
PROVIDERS: ATTENDING PHYSICIAN Internal Medicine Hematology & Oncology; PRIMARYCARE PHYSICIAN Family Medicine
DX: C50.212 Malignant neoplasm of upper-inner quadrant of left female breast (principal); C79.51 Secondary malignant neoplasm of bone; C78.02 Secondary malignant neoplasm of left lung; Z17.0 Estrogen receptor positive status [ER+]; Z51.11 Encounter for antineoplastic chemotherapy
CPT/HCPCS: 36415; 80053; 85025; 86300; 96402; J9395

== ENCOUNTER 2025-05-29 11:26 | Outpatient (RCR) | payer OTHER, SELFPAY ==
[2025-05-26 11:18] LABS: Hematocrit 35.2 % (37.0-47.0); Hemoglobin 11.3 g/dL (12.0-16.0); Mean Corp Hgb Conc. 32.1 g/dL (33.0-37.0); Mean Corpuscular Volume 97.2 fL (81.0-99.0); Platelet Count 208 10^3/uL (130-400); Red Cell Dist. Width 13.5 % (11.5-14.5)
[2025-05-26 11:59] LABS: ALT (SGPT) 11 U/L (0-35); AST (SGOT) 20 U/L (14-36); Albumin 4.1 g/dl (3.5-5.0); Alkaline Phosphatase 67 U/L (38-126); Blood Urea Nitrogen 9 mg/dl (7-17); Calcium 9.8 mg/dl (8.4-10.2); Carbon Dioxide 29 mmol/L (22-30); Chloride 104 mmol/L (98-107); Glucose 87 mg/dl (70-99); Potassium 4.0 mmol/L (3.5-5.1); Sodium 139 mmol/L (135-145); Total Protein 7.3 g/dl (6.3-8.2); eGFR > 60.00
[2025-05-27 14:14] LABS: CA 27-29 49.9 U/mL (<=39.0)
[2025-05-29 11:38] VITALS: BP 133/86
[2025-05-29] MEDS: FASLODEX 250 MG IM ×2 (12:01)
== END 2025-06-01 09:06 | disposition home or self-care (01) ==
LOC: OID 11:26
PROVIDERS: ATTENDING PHYSICIAN Internal Medicine Hematology & Oncology; PRIMARYCARE PHYSICIAN Family Medicine
DX: C50.212 Malignant neoplasm of upper-inner quadrant of left female breast (principal); C79.51 Secondary malignant neoplasm of bone; C78.02 Secondary malignant neoplasm of left lung; Z17.0 Estrogen receptor positive status [ER+]; Z51.11 Encounter for antineoplastic chemotherapy
CPT/HCPCS: 36415; 80053; 85025; 86300; 96402; J9395

== ENCOUNTER 2025-06-26 11:26 | Outpatient (RCR) | payer OTHER, SELFPAY ==
[2025-06-23 09:31] LABS: Hematocrit 36.6 % (37.0-47.0); Hemoglobin 12.1 g/dL (12.0-16.0); Mean Corp Hgb Conc. 33.1 g/dL (33.0-37.0); Mean Corpuscular Volume 93.4 fL (81.0-99.0); Platelet Count 190 10^3/uL (130-400); Red Cell Dist. Width 13.5 % (11.5-14.5)
[2025-06-23 10:31] LABS: ALT (SGPT) 17 U/L (0-35); AST (SGOT) 29 U/L (14-36); Albumin 4.4 g/dl (3.5-5.0); Alkaline Phosphatase 71 U/L (38-126); Blood Urea Nitrogen 11 mg/dl (7-17); Calcium 9.5 mg/dl (8.4-10.2); Carbon Dioxide 26 mmol/L (22-30); Chloride 99 mmol/L (98-107); Glucose 115 mg/dl (70-99); Potassium 3.6 mmol/L (3.5-5.1); Sodium 135 mmol/L (135-145); Total Protein 7.8 g/dl (6.3-8.2); eGFR > 60.00
[2025-06-25 11:20] LABS: CA 27-29 53.6 U/mL (<=39.0)
[2025-06-26 11:44] VITALS: BP 137/84
[2025-06-26] MEDS: FASLODEX 250 MG IM ×2 (11:56→11:57)
== END 2025-07-15 23:59 | disposition home or self-care (01) ==
LOC: OID 11:26
PROVIDERS: ATTENDING PHYSICIAN Internal Medicine Hematology & Oncology; PRIMARYCARE PHYSICIAN Family Medicine
DX: C50.212 Malignant neoplasm of upper-inner quadrant of left female breast (principal); C79.51 Secondary malignant neoplasm of bone; C78.02 Secondary malignant neoplasm of left lung; Z17.0 Estrogen receptor positive status [ER+]
CPT/HCPCS: 36415; 80053; 85025; 86300; 96402; J9395